=== PATIENT | female | born 1990 | race Caucasian/White ===

== ENCOUNTER 2018-10-20 10:31 | Emergency (ER) | payer MEDICAID ==
[~2018-10-20] VITALS: Ht 165.1 cm; Wt 61.2 kg
[~2018-10-20 10:31] MED LIST: FLUO20CA25
--- OUTSIDE RECORDS SUMMARY | 2018-10-20 10:55 | XMS REPORT ---
Author Author LOU JC Organization [facility] Address [address] [place] [address] Phone Unavailable Care Team Providers Care Gasoline Catalyst Operator Name Role Phone LOU JC Unavailable Unavailable PROBLEMS Unknown Problems ALLERGIES No Known Allergies ENCOUNTERS Encounter Location Date Diagnosis [facility] [id number], [place] [address] Sep, [facility] [id number] [address] Aug, [facility] [address], [place] [address] Aug, [facility] [id number] [id number] Aug, Oral health maintenance status requiring routine preventive dental care K08.9 IMMUNIZATIONS No Known Immunizations SOCIAL HISTORY Never Assessed REASON FOR VISIT PLAN OF CARE Activity Details Follow Up PRN Reason:Patient will call for appt. VITAL SIGNS MEDICATIONS Unknown Medications RESULTS No Results PROCEDURES Procedure Date Ordered Result Body Site Full mouth debridement Aug 23, 2018 TOPICAL FLUORIDE VARNISH Aug 23, 2018 INSTRUCTIONS MEDICATIONS ADMINISTERED No Known Medications MEDICAL (GENERAL) HISTORY Type Description Date Medical History Undergoing treatment for addiction 09/04 Surgical History No know Surgical history
--- OUTSIDE RECORDS SUMMARY | 2018-10-20 10:55 | XMS REPORT | Continuity of Care Document ---
Author Author [facility] Organization [facility] Address [address] [place] [address] Care Team Providers Care Router Operator Radial Name Role Phone Eze Yang PCP Roderick Washburn Rndphys Allergies, Adverse Reactions, Alerts Allergen Type Severity Reaction Last Updated Verified Status benzonatate Allergy Severe Rash April 06, 2018 Y Active Medications Active Medications Medication Dose Units Route Sig Start Date Status Albuterol Sulfate [Proair Hfa] 2 PUFF INH Q4H PRN For Shortness Of Air/ Wheezing April 06, 2018 Active Cetirizine Hcl [Zyrtec] 10 MG PO Daily April 06, 2018 Active Divalproex Er [Depakote Er] 500 MG PO Daily April 06, 2018 Active Fluticasone Nasal Ogema [Flonase] 1 SPRAY EA NOSTRIL Daily April 06, 2018 Active Lamotrigine [Lamictal] 100 MG PO Daily April 06, 2018 Active Problem List Inactive/Resolved Problems Medical Problem Onset Date Status Suicidal ideation Inactive Procedures No known history of procedures. Relevant Diagnostic Tests and/or Laboratory Data Laboratory Results Test Date/Time Result Interp. Ref. Range Result Comment White Blood Count April 06, 2018 12:28pm 4.7 T/MM3 4.5-11.0 Red Blood Count April 06, 2018 12:28pm 4.22 M/MM3 4.00-5.20 Hemoglobin April 06, 2018 12:28pm 11.0 GM/DL Low 12-16 Hematocrit April 06, 2018 12:28pm 34.6 % Low 36-46 Mean Corpuscular Volume April 06, 2018 12:28pm 82.0 UM3 80-100 Mean Corpuscular Hemoglobin April 06, 2018 12:28pm 26.1 UUG 26-34 Mean Corpuscular Hemoglobin Concent April 06, 2018 12:28pm 31.8 GM/DL 31- 37 RDW Standard Deviation April 06, 2018 12:28pm 47.4 FL 36.9-50.2 Platelet Count April 06, 2018 12:28pm 277 T/MM3 130-400 Mean Platelet Volume April 06, 2018 12:28pm 10.7 UM3 9.4-12.4 Neutrophils (%) (Auto) April 06, 2018 12:28pm 52.5 % 33-66 Lymphocytes (%) (Auto) April 06, 2018 12:28pm 38.5 % 23-45 Monocytes (%) (Auto) April 06, 2018 12:28pm 5.8 % 0-9.0 Eosinophils (%) (Auto) April 06, 2018 12:28pm 3.0 % 0-4 Basophils (%) (Auto) April 06, 2018 12:28pm 0.2 % 0-2 Immature Granulocyte % (Auto) April 06, 2018 12:28pm 0.0 % 0.0-0.5 Neutrophils # (Auto) April 06, 2018 12:28pm 2.4 T/MM3 1.8-7.7 Lymphocytes # (Auto) April 06, 2018 12:28pm 1.8 T/MM3 1-4.8 Monocytes # (Auto) April 06, 2018 12:28pm 0.3 T/MM3 0-0.8 Eosinophils # (Auto) April 06, 2018 12:28pm 0.1 T/MM3 0-0.5 Basophils # (Auto) April 06, 2018 12:28pm 0.0 T/MM3 0-0.2 Absolute Immature Granulocyte (auto April 06, 2018 12:28pm 0.00 T/MM3 0.00 -0.03 Urine Collection Type April 06, 2018 12:00pm Urine, void-cc/notcc Urine Color April 06, 2018 12:00pm Yellow Urine Clarity April 06, 2018 12:00pm Clear Urine Specific [place] April 06, 2018 12:00pm <=1.005 Low Urine pH April 06, 2018 12:00pm 6.0 Urine Leukocyte Esterase April 06, 2018 12:00pm Negative Urine Nitrate April 06, 2018 12:00pm Negative Urine Protein April 06, 2018 12:00pm Negative Urine Glucose (UA) April 06, 2018 12:00pm Negative Urine Ketones April 06, 2018 12:00pm Negative Urine Urobilinogen April 06, 2018 12:00pm 0.2 EU/DL Urine Bilirubin April 06, 2018 12:00pm Negative Urine Occult Blood April 06, 2018 12:00pm Negative Urinalysis Comment April 06, 2018 12:00pm Microscopic not ind. Icterus Index April 06, 2018 12:28pm < 2 0-7 Chemistry Specimen Hemolysis April 06, 2018 12:28pm < 15 0-25 0-25: Specimen Exhibited No Hemolysis. Turbidity April 06, 2018 12:28pm < 20 0-20 Sodium Level April 06, 2018 12:28pm 147 MEQ/L High 136-146 Potassium Level April 06, 2018 12:28pm 4.0 MEQ/L 3.6-5 Chloride Level April 06, 2018 12:28pm 108 MEQ/L High 98-107 Carbon Dioxide Level April 06, 2018 12:28pm 24 MEQ/L 22-30 Anion Gap April 06, 2018 12:28pm 15 meq/L 5-15 Blood Urea Nitrogen April 06, 2018 12:28pm 7.0 MG/DL 7-17 Creatinine April 06, 2018 12:28pm 0.7 mg/dL 0.7-1.2 Glomerular Filtration Rate Calc April 06, 2018 12:28pm 100 BUN/Creatinine Ratio April 06, 2018 12:28pm 10 RATIO 6-26 Glucose Level April 06, 2018 12:28pm 95 MG/DL 65-110 Calculated Osmolality April 06, 2018 12:28pm 280 MOSM/KG 261-280 Calcium Level April 06, 2018 12:28pm 9.2 MG/DL 8.4-10.2 Total Bilirubin April 06, 2018 12:28pm 0.30 MG/DL 0.20-1.30 Alkaline Phosphatase April 06, 2018 12:28pm 86 U/L 38-126 Aspartate Amino Transf (AST/SGOT) April 06, 2018 12:28pm 18 U/L 14-36 Alanine Aminotransferase (ALT/SGPT) April 06, 2018 12:28pm 13 U/L 1-35 Effective 11/29/2017 ALT results are lower due to methodology change. Total Protein April 06, 2018 12:28pm 7.2 g/dL 6.3-8.2 Albumin April 06, 2018 12:28pm 4.7 g/dL 3.5-5.0 Globulin April 06, 2018 12:28pm 2.5 G/DL 2.4-3.6 Albumin/Globulin Ratio April 06, 2018 12:28pm 1.9 RATIO 1.1-2.2 Thyroid Stimulating Hormone (TSH) April 06, 2018 12:28pm 0.39 mIU/L Low 0.47 -4.68 This result could be falsely decreased if the patient is consuming greater than 300 mcg of Biotin per day. Acetaminophen Level April 06, 2018 12:28pm < 10 ug/mL Low 10-30 TOXIC <4 HR POST INGESTION: >150 MG/L; TOXIC <12 HR POST INGESTION: >50 MG/L Salicylates Level April 06, 2018 12:28pm < 1.0 MG/DL Low 2-20 Alcohol, Quantitative April 06, 2018 12:28pm <10 mg/dL Urine Amphetamines Screen April 06, 2018 12:37pm Positive ng/mL Urine Barbiturates Screen April 06, 2018 12:37pm Negative ng/mL Urine Benzodiazepines Screen April 06, 2018 12:37pm Negative ng/mL Urine Cocaine Screen April 06, 2018 12:37pm Negative ng/mL Urine Opiates Screen April 06, 2018 12:37pm Negative ng/mL Urine Phencyclidine Screen April 06, 2018 12:37pm Negative ng/mL Urine Cannabinoids Screen April 06, 2018 12:37pm Negative ng/mL Urine Tricyclic Antidepressants April 06, 2018 12:37pm Negative ng/mL Urine Oxycodone Screen April 06, 2018 12:37pm Negative ng/mL Urine Propoxyphene Screen April 06, 2018 12:37pm Negative ng/mL [employer] Drugs of Abuse Screen provides preliminary results only. The results are unconfirmed and are for medical treatment only. A more specific test (GC/MS ) must be used to confirm positive analytical test results. Results may not be used for any employment or legal purposes. Chief Complaint and Reason for Visit Encounter Admit Date Chief Complaint Reason for Visit Departed Emergency April 06, 2018 11:58am [facility] Discharge Instructions No known hospital discharge instructions. Hospital Discharge Medications Medication Dose Units Route Sig Qty Days Order Date Status Instructions Albuterol Sulfate 2 PUFF INH Q4H PRN For Shortness Of Air/Wheezing April 06, 2018 Active Cetirizine Hcl 10 MG PO Daily April 06, 2018 Active Divalproex Er 500 MG PO Daily April 06, 2018 Active Fluticasone Nasal [place] 1 SPRAY EA NOSTRIL Daily April 06, 2018 Active Lamotrigine 100 MG PO Daily April 06, 2018 Active Encounters Encounter Facility Location Admit/Visit Date Discharge/Departure Date Attending Provider Departed Emergency [facility] Emergency Department April 06, 2018 11:58am April 06, 2018 4:50pm Functional Status Query Response Date Recorded Comment Level of Consciousness Awake Alert Appropriate Follows Commands April 06, 2018 4:50pm Immunizations No known immunizations. Payers Payer Name Policy Type Covered Alliance Party Covered Alliance Party Id Relationship Subscriber Subscriber Id REG [facility] Plan Medicaid December Francis [id number] Self/Same As Patient Chula Francis [id number] Self Pay Personal Payment ([place] - No Insurance) Plan of Care No Known Plan of Care Information Social History Query Response Date Recorded Comment substance use type former substance user marijuana methamphetamine April 06, 2018 6:36pm Query Response Start Date Stop Date Smoking Status Current every day smoker Vital Signs Vital Reading Result Reference Range Collection Date/Time Height 5 ft 5 in April 06, 2018 12:10pm Weight 54 kg April 06, 2018 12:10pm Temperature 98.6 F 96.8 F-100.4 F April 06, 2018 4:50pm Pulse 81 BPM 60-100 April 06, 2018 4:50pm Respiration 18 RPM 10-24 April 06, 2018 4:50pm Pulse Oximetry 99 % 90-100 April 06, 2018 4:50pm Blood Pressure Systolic 128 -139 April 06, 2018 4:50pm Blood Pressure Diastolic 63 -89 April 06, 2018 4:50pm Body Mass Index n/a
--- OUTSIDE RECORDS SUMMARY | 2018-10-20 10:55 | XMS REPORT ---
Author Author FLYNN MARINO Organization [facility] Address [address] [place] [address] Care Team Providers Care Credit Products Officer Name Role Phone MARINO, FLYNN Unavailable PROBLEMS Type Condition ICD9-CM Code SNI60-KH Code Onset Dates Condition Status SNOMED Code Problem PTSD (post-traumatic stress disorder) F43.10 Active 80102061 Problem Bipolar 1 disorder F31.9 Active 370996248 Problem Cannabis abuse F12.10 Active 98768465 Problem Amphetamine abuse F15.10 Active 51615013 ALLERGIES No Information ENCOUNTERS Encounter Location Date Diagnosis [facility] [id number] [place] [address] Sep, [facility] [id number] [place] [address] Sep, [facility] [id number] [place] [address] Aug, [facility] [id number] [place] [phone] Aug, Bipolar 1 disorder F31.9 ; Amphetamine abuse F15.10 ; Cannabis abuse F12.10 and PTSD (post-traumatic stress disorder) F43.10 [facility] [id number] [place] [phone] Aug, Oral health maintenance status requiring routine preventive dental care K08.9 IMMUNIZATIONS No Known Immunizations SOCIAL HISTORY Never Assessed REASON FOR VISIT Intake PLAN OF CARE Activity Details Follow Up 3 Weeks Reason: VITAL SIGNS MEDICATIONS Medication Instructions Dosage Frequency Start Date End Date Duration Status Depakote 500 MG as directed Active RESULTS No Results PROCEDURES Procedure Date Ordered Result Body Site Psych diagnostic evaluation, established patient Sep 03, 2018 INSTRUCTIONS MEDICATIONS ADMINISTERED No Known Medications MEDICAL (GENERAL) HISTORY Type Description Date Medical History Undergoing treatment for addiction 09/04 Surgical History No Surgical history information
--- OUTSIDE RECORDS SUMMARY | 2018-10-20 10:55 | XMS REPORT | Summary of Care ---
Author Author Kenn Camarillo M.D. Organization Unknown Address [address], [place] [id number] Phone Unavailable Care Team Providers Care Export Sales Manager Name Role Phone Josefina Bradley Unavailable Unavailable Kenn Camarillo M.D. Unavailable Unavailable Eze Yang Unavailable Unavailable Unavailable Unavailable Functional Status Name Dates Details Functional status health issues are not documented Status: Name Dates Details Cognitive status health issues are not documented Status: Problems Name Dates Details Abscess of back (682.2, L02.212) Status: Active Medications Name Dates Details Sulfamethoxazole-Trimethoprim 800-160 MG Oral Tablet 1 PO BID for 7 days Quantity: 14 Josefina Bradley * Start : 27-Apr-2017 Active Mupirocin 2 % External Ointment APPLY A SMALL AMOUNT 2 TIMES DAILY DIRECTED. * Quantity: 1 Refills: 0 Josefina Bradley * Start : 27-Apr-2017 Active 22 GM Tube Acetaminophen-Codeine #3 300-30 MG Oral Tablet TAKE 1/2-1 TABLET EVERY 6 HOURS NEEDED FOR PAIN. * Quantity: 1 Refills: 0 Josefina Bradley * Start : 27-Apr-2017 Active 30 Tablet Bottle Allergies and Adverse Reactions Name Dates Details No Known Allergies (Allergy) Status: Active Procedures Procedure Dates Details Procedures not documented Immunization Name Dates Details Immunizations not documented Social History Name Dates Details - Status: Name Dates Details Current every day smoker Vital Signs Date Test Result Details [id number] BP Systolic 100 mm[Hg] Status: Comments: Location: [facility]; Position: Sitting BP Diastolic 60 mm[Hg] Status: Comments: Location: [facility]; Position: Sitting Weight 107 lb Status: Temperature 98.6 f Status: Comments: Method: Tympanic Heart Rate 104 /min Status: O2 SAT 99 % Status: Comments: Source: RA Results Date Description Value Details Results not documented Plan of Care Name Dates Details Planned Observations Planned Goals not documented Instructions Name Dates Details Instructions not documented Encounters Appointment; Kenn Camarillo M.D. Encounter Diagnosis: Problem not documented On: 27-Apr-2017 15:00
--- OUTSIDE RECORDS SUMMARY | 2018-10-20 10:55 | XMS REPORT | Continuity Of Care Document ---
Author Author [facility] Organization [facility] Address [address] [place] [address] Phone Care Team Providers Care Data Migration Consultant Name Role Phone NAIN HARRINGTON MD Unavailable ESHA HULL, JILLIAN Schultz AT Results Results No results recorded. Allergies and Adverse Reactions Allergies and Adverse Reactions Patient Unit Number: [id number] Agent Type Reaction Severity Status NO KNOWN ALLERGIES Drug Allergy Unknown Unknown Active Problem List Problem List No problem list recorded. Plan of Care Plan Of Care Visit/Account #[id number] (April 29, 2017 2:55am - April 29, 2017 3:32am) Patient Instructions Apply warm compresses to area for 20 minutes at a time at least twice a day. Take the antibiotics as previously prescribed. Take tylenol 1000 mg and ibuprofen 400 mg four times a day as needed for pain for no more than 3 days. Return if symptoms worsen, if new symptoms develop, or for any other concerns. Vital Signs Vital Signs Visit/Account #[id number] (April 29, 2017 2:55am - April 29, 2017 3:32am) Sign First Result Last Result Code(s) Temperature in Fahrenheit Temperature (Fahrenheit): 98.1 [degF] On April 29, 2017 2:56am Temperature (Fahrenheit): 98.0 [degF] On April 29, 2017 3:32am 8310-5 Body Temperature Functional Status Functional and Cognitive Status No Functional Status Data Medications Inpatient/Ordered Medications - Medications administered during hospital visit Visit/Account #[id number] (April 29, 2017 2:55am - April 29, 2017 3:32am) Medication Route Sig/Schedule Precondition/Indication Comments/Instructions Codes NORCO 5-325(HYDROcodone BIT/ACETAMINOPHEN) 1 TAB TAB Dose: 2 TAB ORAL NOW Label Comments: <<may be substituted for 5/500>> REC MAX DAILY DOSE ACETAMINOPHEN: 4000 MG/24 HR MAY INCREASE FALL RISK Acetaminophen 325 MG / Hydrocodone Bitartrate 5 MG Oral Tablet (RxNorm): 601595 NORCO 5-325 (HYDROcodone BIT/ACETAMINOPHEN) [facility]: [id number] History Of Encounters Encounters Visit/Account #[id number] (April 29, 2017 2:55am - April 29, 2017 3:32am) Account Status Physican Of Record Reason For Visit Visit Diagnosis Start Date/Time Stop Date/Time ER JILLIAN BALBUENA MD BUMP ON BACK Not Available Apr 29, 2017 2:55am Apr 29, 2017 3:32am History of Procedures Procedure List No procedures recorded. Discharge Instructions Discharge Instructions Visit/Account #[id number] (April 29, 2017 2:55am - April 29, 2017 3:32am) DISCHARGE INSTRUCTIONS Physician Documentation Social History Social History No Social History Data. Immunizations Immunizations Patient Unit Number: [id number] Immunizations No immunizations recorded.
--- OUTSIDE RECORDS SUMMARY | 2018-10-20 10:55 | XMS REPORT | Summary of Care ---
Author Author Josefina Bradley Organization Unknown Address [address] [place] [phone] Phone Unavailable Care Team Providers Care Digital Communications Manager Name Role Phone Josefina Bradley Unavailable Unavailable Eze Yang Unavailable Unavailable Unavailable [...] smoker Vital Signs Date Test Result Details 04-Hac-353036:56 BP Systolic 100 mm[Hg] Status: Comments: Location: E; Position: Sitting BP Diastolic 60 mm[Hg] Status: Comments: Location: [facility]; Position: Sitting Weight 107 lb Status: Temperature 98.6 f Status: Comments: Method: Tympanic Heart Rate 104 /min Status: O2 SAT 99 % Status: Comments: Source: RA Results Date Description Value Details Results not documented Plan of Care Name Dates Details Planned Observations Planned Goals not documented Interventions Provided Medication Changes* Acetaminophen-Codeine #3 300-30 MG Oral Tablet - Start * Mupirocin 2 % External Ointment - Start * Sulfamethoxazole-Trimethoprim 800-160 MG Oral Tablet - Start Instructions Name Dates Details Instructions not documented Encounters Appointment; Josefina Bradley Encounter Diagnosis: Problem not documented On: 27-Apr-2017 15:15
--- OUTSIDE RECORDS SUMMARY | 2018-10-20 10:56 | XMS REPORT | Continuity Of Care Document ---
Author Author [facility] Organization [facility] Address [address] [place] [address] Phone Care Team Providers Care Iuss Analyst Name Role Phone NAIN HARRINGTON MD PP Unavailable Unavailable TRACIE ESTES MD AT Results Lab Results Visit/Account #[id number] (May 13, 2017 7:33am - May 13, 2017 11:33am) Test Result Date/Time CBC WITH REFLEXED MANUAL DIFF WHITE BLOOD COUNT(4.0-11.0 10E3/UL) 5.8 10E3/UL May 13, 2017 7:50am RED BLOOD COUNT(4.00-5.20 10E6/UL) 4.46 10E6/UL May 13, 2017 7:50am HEMOGLOBIN(12.0-16.0 G/DL) 13.0 G/DL May 13, 2017 7:50am HEMATOCRIT(36.0-46.0 %) 38.6 % May 13, 2017 7:50am MEAN CORPUSCULAR VOLUME(82.0-100.0 FL) 86.5 FL May 13, 2017 7:50am MEAN CORPUSCULAR HEMOGLOBIN(26.0-34.0 PG) 29.1 PG May 13, 2017 7:50am MEAN CORPUSCULAR HGB CONC(31.5-36.5 G/DL) 33.7 G/DL May 13, 2017 7:50am RED CELL DISTRIBUTION WIDTH(11.5-14.5 %) 13.6 % May 13, 2017 7:50am 777-3: PLATELET COUNT(150-450 10E3/UL) 287 10E3/UL May 13, 2017 7:50am MEAN PLATELET VOLUME(8.2-12.4 FL) 10.0 FL May 13, 2017 7:50am DIFF TYPE MANUAL May 13, 2017 7:50am NEUTROPHIL % (MANUAL)(40-70 %) 55 % May 13, 2017 7:50am LYMPHOCYTES % (MANUAL)(15-45 %) 40 % May 13, 2017 7:50am MONOCYTES % (MANUAL)(2-10 %) 3 % May 13, 2017 7:50am EOSINOPHILS % (MANUAL)(0-6 %) 2 % May 13, 2017 7:50am BASOPHILS % (MANUAL)(0-1 %) 0 % May 13, 2017 7:50am NUCLEATED RBCS (MANUAL)(0-0 %) 0 % May 13, 2017 7:50am NEUTROPHILS # (MANUAL)(2.5-7.5 10E3/UL) 3.2 10E3/UL May 13, 2017 7:50am LYMPHOCYTES # (MANUAL)(1.0-4.0 10E3/UL) 2.3 10E3/UL May 13, 2017 7:50am MONOCYTES # (MANUAL)(0.2-0.8 10E3/UL) 0.2 10E3/UL May 13, 2017 7:50am EOSINOPHILS # (MANUAL)(0.0-0.4 10E3/UL) 0.1 10E3/UL May 13, 2017 7:50am BASOPHILS # (MANUAL)(0.0-0.2 10E3/UL) 0.0 10E3/UL May 13, 2017 7:50am PLATELET ESTIMATE ADEQUATE May 13, 2017 7:50am WBC MORPHOLOGY COMMENT 1+ ATYPICAL LYMPHS May 13, 2017 7:50am RBC MORPHOLOGY COMMENT NORMAL May 13, 2017 7:50am PLATELET MORPHOLOGY COMMENT NORMAL May 13, 2017 7:50am UA WITH SCREEN FOR CULTURE COLOR,URINE YELLOW May 13, 2017 10:05am CLARITY,URINE SLIGHTLY CLOUDY May 13, 2017 10:05am GLUCOSE, URINE(NEGATIVE MG/DL) NEGATIVE MG/DL May 13, 2017 10:05am URINE BILIRUBIN(NEGATIVE) SMALL May 13, 2017 10:05am KETONES,URINE(NEGATIVE MG/DL) 5 MG/DL May 13, 2017 10:05am URINE SPECIFIC GRAVITY(1.001-1.035) 1.040 May 13, 2017 10:05am URINE BLOOD(NEGATIVE) NEGATIVE May 13, 2017 10:05am URINE PH(5.0-9.0) 7.0 May 13, 2017 10:05am URINE PROTEIN(Less than 20 MG/DL) 30 MG/DL May 13, 2017 10:05am URINE UROBILINOGEN(0.2-1.0 MG/DL) 4.0 MG/DL May 13, 2017 10:05am URINE NITRITE(NEGATIVE) NEGATIVE May 13, 2017 10:05am LEUKOCYTE ESTERASE ,URINE(NEGATIVE) MODERATE May 13, 2017 10:05am URINE RBCS(0-3 /HPF) 0-3 /HPF May 13, 2017 10:05am URINE WBCS(0-3 /HPF) 21-50 /HPF May 13, 2017 10:05am URINE EPITHELIAL CELLS(0-3 /HPF) 4-7 /HPF May 13, 2017 10:05am URINE HYALINE CASTS(0-3 /LPF) 0-3 /LPF May 13, 2017 10:05am URINE BACTERIA(NEGATIVE /HPF) 1+ /HPF May 13, 2017 10:05am URINE CULTURE TO FOLLOW May 13, 2017 10:05am URINE MICROSCOPIC REQUIRED YES May 13, 2017 10:05am URINE CRYSTALS(NONE SEEN /HPF) 2+ AMORPHOUS /HPF May 13, 2017 10:05am URINE OTHER CASTS(NONE SEEN /LPF) NONE SEEN /LPF May 13, 2017 10:05am URINE COMMENTS 3+ MUCOUS May 13, 2017 10:05am COMPLETE METABOLIC PROFILE GLUCOSE(70-110 MG/DL) 90 MG/DL May 13, 2017 7:50am BLOOD UREA NITROGEN(6-20 MG/DL) 17 MG/DL May 13, 2017 7:50am CREATININE(0.50-1.20 MG/DL) 0.77 MG/DL May 13, 2017 7:50am EST GLOMERULAR FILTRATION RATE(Greater than or equal to 60) Greater than or equal to 60 Result Comments: If the patient is of -[place] descent/extraction multiply the eGFR value by 1.212 to obtain the actual eGFR. >=60 mg/dL Normal 30-59 mg/dL Moderate Kidney Disease 15-29 mg/dL Severe Kidney Disease <15 mg/dL Kidney Failure May 13, 2017 7:50am BUN CREATININE RATIO(10.0-20.0 RATIO) 22.0 RATIO May 13, 2017 7:50am SODIUM(135-145 MMOL/L) 143 MMOL/L May 13, 2017 7:50am POTASSIUM(3.6-5.0 MMOL/L) 3.9 MMOL/L May 13, 2017 7:50am CHLORIDE(101-111 MMOL/L) 107 MMOL/L May 13, 2017 7:50am CO2(21-31 MMOL/L) 26 MMOL/L May 13, 2017 7:50am ANION GAP(8-18) 14 May 13, 2017 7:50am OSMO CALCULATED(270.0-290.0) 286.1 May 13, 2017 7:50am CALCIUM(8.5-10.5 MG/DL) 9.7 MG/DL May 13, 2017 7:50am BILIRUBIN,TOTAL(0.1-1.2 MG/DL) 0.6 MG/DL May 13, 2017 7:50am ALKALINE PHOSPHATASE(42-121 IU/L) 89 IU/L May 13, 2017 7:50am ASPARTATE AMINO TRANSFERASE(10-42 IU/L) 18 IU/L May 13, 2017 7:50am ALANINE AMINOTRANSFERASE(10-60 IU/L) 15 IU/L May 13, 2017 7:50am TOTAL PROTEIN(6.4-8.2 G/DL) 7.7 G/DL May 13, 2017 7:50am ALBUMIN(3.5-5.5 G/DL) 4.8 G/DL May 13, 2017 7:50am GLOBULIN(2.4-3.6) 2.9 May 13, 2017 7:50am ALBUMIN/GLOBULIN RATIO(0.9-1.8 RATIO) 1.7 RATIO May 13, 2017 7:50am LIPASE LIPASE(22-51 U/L) 32 U/L May 13, 2017 7:50am SERUM HCG, QUALITATIVE SERUM HCG, QUALITATIVE(NEGATIVE) NEGATIVE May 13, 2017 7:50am Microbiology Results Visit/Account #[id number] (May 13, 2017 7:33am - May 13, 2017 11:33am) Procedure Result URINE CULTURE URINE CULTURE Result Instance On May 13, 2017 10:05am Source: URINE Organism: MIXED UROGENITAL ORGANISMS COLONY COUNT >100,000 Allergies and Adverse Reactions Allergies and Adverse Reactions Patient Unit Number: [id number] Agent Type Reaction Severity Status NO KNOWN ALLERGIES Drug Allergy Unknown Unknown Active Problem List Problem List Visit/Account #[id number] (May 13, 2017 7:33am - May 13, 2017 11:33am) Active Problems: Code/Condition Comments Documented Start Date Documented Resolved Date Code (s) N30.00 ACUTE CYSTITIS WITHOUT HEMATURIA May 13, 2017 Plan of Care Plan Of Care Visit/Account #[id number] (May 13, 2017 7:33am - May 13, 2017 11:33am) Patient Instructions Follow with a primary care Dr. in 3-5 days. Drink a lot of oral fluids. Take antibiotics as prescribed and take pain medications as needed. Return to the emergency room if symptoms worsens or has any concern. Vital Signs Vital Signs No Vital Signs Data. Functional Status Functional and Cognitive Status No Functional Status Data Medications Inpatient/Ordered Medications - Medications administered during hospital visit Visit/Account #[id number] (May 13, 2017 7:33am - May 13, 2017 11:33am) Medication Route Sig/Schedule Precondition/Indication Comments/Instructions Codes TORADOL INJ(KETOROLAC TROMETHAMINE) 60 MG/2 ML VIAL Dose: 0.5 ML INTRAVEN NOW TORADOL INJ (KETOROLAC TROMETHAMINE) NDC: 80768345156 ZOFRAN INJ(ONDANSETRON HCL) 4 MG/2 ML INJECTION Dose: 2 ML INTRAVEN NOW Label Comments: SLOW IV PUSH MAY INCREASE FALL RISK ZOFRAN INJ (ONDANSETRON HCL) NDC: 53030454478 KEFLEX(CEPHALEXIN) 500 MG CAP Dose: 500 MG ORAL NOW KEFLEX (CEPHALEXIN) NDC: 51487878860 Discharge Medications - Medications that patient should continue to take. Review with physician Visit/Account #[id number] (May 13, 2017 7:33am - May 13, 2017 11:33am) Medication Route Sig/Schedule Precondition/Indication Comments/Instructions Codes KEFLEX(CEPHALEXIN MONOHYDRATE) 500 MG CAPSULE Dose: 500 MG ORAL BID KEFLEX (CEPHALEXIN MONOHYDRATE) NDC: 53975926538 NORCO 5-325(HYDROcodone BIT/ACETAMINOPHEN) 1 EACH TABLET Dose: 1 TAB ORAL Q4H PAIN NORCO 5-325 (HYDROcodone BIT/ACETAMINOPHEN) NDC: 13478026699 History Of Encounters Encounters Visit/Account #[id number] (May 13, 2017 7:33am - May 13, 2017 11:33am) Account Status Physican Of Record Reason For Visit Visit Diagnosis Start Date/Time Stop Date/Time ER TRACIE ESTES MD ABD PAIN R10.30: LOWER ABDOMINAL PAIN, UNSPECIFIED ICD10 May 13, 2017 7:33am May 13, 2017 11:33am History of Procedures Procedure List No procedures recorded. Discharge Instructions Discharge Instructions Visit/Account #[id number] (May 13, 2017 7:33am - May 13, 2017 11:33am) DISCHARGE INSTRUCTIONS Physician Documentation Social History Social History No Social History Data. Immunizations Immunizations Patient Unit Number: [id number] Immunizations No immunizations recorded.
--- OUTSIDE RECORDS SUMMARY | 2018-10-20 10:56 | XMS REPORT | Continuity Of Care Document ---
Author Author [facility] Organization [facility] Address [address] [facility] [facility], [place] [address] Phone Care Team Providers Care Experimental Machinist Name Role Phone LEXI HULL, JESUS Marquez AT [phone] JUANY HULL, NAIN Squires PP Results Lab Results Visit/Account #[id number] (April 07, 2013 2:30pm - April 08, 2013 7:50pm) Test Result Reported Date/Time COMPLETE BLOOD COUNT WHITE BLOOD COUNT(4.0-11.0 10E3/UL) 10.2 10E3/UL April 07, 2013 3:26pm RED BLOOD COUNT(3.80-5.20 10E6/UL) 4.48 10E6/UL April 07, 2013 3:26pm HEMOGLOBIN(12.0-16.0 G/DL) 14.2 G/DL April 07, 2013 3:26pm HEMATOCRIT(36.0-48.0 %) 42.5 % April 07, 2013 3:26pm MEAN CORPUSCULAR VOLUME(80.0-100.0 FL) 94.9 FL April 07, 2013 3:26pm MEAN CORPUSCULAR HEMOGLOBIN(27.0-34.0 PG) 31.7 PG April 07, 2013 3:26pm MEAN CORPUSCULAR HGB CONC(33.0-37.0 G/DL) 33.4 G/DL April 07, 2013 3:26pm RED CELL DISTRIBUTION WIDTH(11.0-15.0 %) 13.1 % April 07, 2013 3:26pm 777-3: PLATELET COUNT(130-400 10E3/UL) 183 10E3/UL April 07, 2013 3:26pm MEAN PLATELET VOLUME(7.4-11.0 FL) 12.2 FL April 07, 2013 3:26pm NUCLEATED RBCS (AUTO)(0-0 %) 0 % April 07, 2013 3:26pm Microbiology Results Visit/Account #[id number] (April 07, 2013 2:30pm - April 08, 2013 7:50pm) Procedure Result Specimen #: [id number] MRSA SCREEN FOR INFEC CONTROL Result Instance On April 09, 2013 2:21pm Source: STEPHANIE Special Result Comments: NO MRSA ISOLATED Bloodbank Results Visit/Account #[id number] (April 07, 2013 2:30pm - April 08, 2013 7:50pm) Test Result ABO/RH BLOOD TYPE O NEGATIVE on April 07, 2013 3:54pm ANTIBODY SCREEN ANTIBODY SCREEN POSITIVE on April 07, 2013 4:06pm ANTIBODY IDENTIFICATION ANTIBODY IDENTIFICATION Antibody: Anti-D PATIENT RECEIVED RHIG ON JANUARY 21, 2013, PER OMAR DIEHL HEMOGLOBLIN BATTERY HEMOGLOBIN PATIENT RES. Negative on April 08, 2013 3:53am RHOPHYLAC INDICATION RHOPHYLAC INDICATION INDICATED on April 08, 2013 1:42am RHIG LOT NUMBER RHIG LOT NUMBER [id number] on April 08, 2013 3:57am RHIG EXPIRATION RHIG EXPIRATION 14 JUL 2015 on April 08, 2013 3:58am Issued Product(s): Rhophylac:U500.0811 (1 Total Units) 1 Unit(s) Of 641191 Rhophylac TRANSFUSED April 08, 2013 5:55am Result Procedures Visit/Account #[id number] (April 07, 2013 2:30pm - April 08, 2013 7:50pm) Department: MEDICAL RECORDS [ Report: OPERATIVE NOTE ] OPERATIVE NOTE Dictated By: JESUS ELLIOTT MD Signed By: JESUS ELLIOTT MD [address] [address] Patient: OLE OCONNOR Unit/MR#: [id number] : 1990 Age: 22 Sex: F Report#: [id number] Room#: 619-A Location: Dictator: JESUS ELLIOTT MD Attn Phys: JESUS ELLIOTT MD Adm Date: 04/07/13 Disch Date: 04/08/13 ~OPERATIVE NOTE~ Signed DATE OF OPERATION: 04/07/2013 SURGEON: JESUS ELLIOTT MD LABOR SUMMARY: The patient is a 22-year-old multiparous female, admitted to Labor and Delivery with spontaneous rupture of membranes. She is at 39 weeks. Pitocin augmentation was initiated and she progressed nicely in her first stage, had a short pushing stage, and then had a spontaneous vaginal delivery of a vigorous female with Apgars assigned by nursing over an intact perineum without extension. Placenta delivered shortly thereafter intact, 3 vessel. Estimated blood loss 350 mL. JEP:Nitish [id number] D. 04/07/2013 T. 04/07/2013 CC: JESUS ELLIOTT MD ~ Dictated By: JESUS ELLIOTT MD Signed By: JESUS ELLIOTT MD 04/15/13 180 JESUS ELLIOTT MD 04/15/13 180 Allergies and Adverse Reactions Allergies and Adverse Reactions Patient Unit Number: [id number] Agent Type Reaction Severity Status Date NO KNOWN ALLERGIES Drug Allergy Unknown Mild Active January 14, 2011 Problem List Problem List Visit/Account #[id number] (April 07, 2013 2:30pm - April 08, 2013 7:50pm) Active Problems: Code/Condition Comments Documented Start Date Documented Resolved Date 657.01 POLYHYDRAMNIOS,DEL W OR W/O MENTN ANTEPARTUM COND April 08, 2013 649.01 TOBACCO USE DISORDER COMP PREG/CHILDBIRTH/PUERPERIUM, DELIV April 08, 2013 V27.0 DELIVER-SINGLE LIVEBORN April 08, 2013 Vital Signs Vital Signs Visit/Account #[id number] (April 07, 2013 2:30pm - April 08, 2013 7:50pm) Label First Result Last Result 2710-2: O2% 98 % April 07, 2013 11:02pm 98 % April 07, 2013 11:02pm 8310-5: Celsius Body Temperature 36.22853 Lois April 07, 2013 11:02pm 36.88345 Lois April 07, 2013 11:02pm 8310-5: Fahrenheit Body Temperature 97.9 [degF] April 07, 2013 11:02pm 97.9 [degF] April 07, 2013 11:02pm Blood Pressure 112/54 mm[Hg] April 07, 2013 11:02pm 112/54 mm[Hg] April 07, 2013 11:02pm 8867-4: Heart Rate 67 /min April 07, 2013 11:02pm 67 /min April 07, 2013 11:02pm 9279-1: Respiratory Rate 18 /min April 07, 2013 11:02pm 18 /min April 07, 2013 11:02pm Home Medications Home Medications Visit/Account #[id number] (April 07, 2013 2:30pm - April 08, 2013 7:50pm) Discontinued Medications Medication Dose Route Sig/Schedule Precondition/Indication Comments/ Instructions NDC LORTAB 5-500(HYDROCODONE BIT/ACETAMINOPHEN) 1 TAB TABLET 1 - 2 TAB PO: ORAL Q4: EVERY 4 HOURS Status: Discontinued as of 04/07/2013 3:24pm Rx Instructions: 1-2 TABS LORTAB 5-500 (HYDROCODONE BIT/ACETAMINOPHEN): [id number] Ordered Medications Ordered Medications Visit/Account #[id number] (April 07, 2013 2:30pm - April 08, 2013 7:50pm) Medication Dose Route Sig/Schedule Precondition/Indication Comments/ Instructions NDC SUBLIMAZE INJ(FentaNYL CITRATE) 100 MCG/2 ML INJECTION 100 MCG IV: INTRAVEN Q1H PRN Reason: PRN Reason: PAIN Rx Order Comments: Order filed UNV: Dose Warnings differ from purchase order checker SUBLIMAZE INJ (FentaNYL CITRATE): [id number] IV Medication Carriers: OXYTOCIN/RINGERS LACTATE 30 UNIT/500 ML INJECTION 500 UNIT IV: INTRAVEN .Q0M (Rate: 0 MLS/HR Duration: 0 SEC) PRN Reason: PRN Reason: INDUCTION/AUGMENTATION LABOR Rx Order Comments: Order filed UNV: Dose Warnings differ from purchase order checker Label Comments: Conc: 60 milliunits/mL Initiate at 1 milliunits/minute and increase infusion by 2-4 milliunits/minute every 20-30 minutes to a max of 36 milliunits/minute until desired contraction pattern is established. Carriers: (OXYTOCIN/RINGERS LACTATE): [id number] IV Medication Carriers: LR(LACTATED RINGER'S) 1000 ML INJECTION 1000 ML IV: INTRAVEN .Q8H (Rate: 125 MLS/HR Duration: 8 HR) Carriers: LR (LACTATED RINGER'S): [id number] MOTRIN(IBUPROFEN) 800 MG TAB 800 MG PO: ORAL Q8S: EVERY 8 HOURS Label Comments: Patient may refuse, but encourage use. MOTRIN (IBUPROFEN): [id number] NORCO 5-325(HYDROCODONE BIT/ACETAMINOPHEN) 1 TAB TAB 0 TAB PO: ORAL Q4H PRN Reason: PRN Reason: MODERATE PAIN Label Comments: (pain level 3-6) Special Dose Instructions: 1-2 TABS NORCO 5-325 (HYDROCODONE BIT/ACETAMINOPHEN): [id number] ADACEL(DIPHTH/TETANUS/ACEL. PERTUSSIS) 0.5 ML INJECTION 0.5 ML IM: INTRAMUSC .CHET PRN Reason: VACCINATION STATUS Label Comments: offer prior to dismissal ADACEL (DIPHTH/TETANUS/ACEL. PERTUSSIS): [id number] History Of Encounters Encounters Visit/Account #[id number] (April 07, 2013 2:30pm - April 08, 2013 7:50pm) No reports exist, or have been identified for inclusion with this encounter. History of Procedures Procedure List Visit/Account #[id number] (April 07, 2013 2:30pm - April 08, 2013 7:50pm) Code/Procedure Date 73.59: MANUAL ASSIST KENN CARDONA April 07, 2013
--- OUTSIDE RECORDS SUMMARY | 2018-10-20 10:56 | XMS REPORT | Continuity of Care Document ---
Author Author [facility] Organization [facility] Address [address] [place] [address] Care Team Providers Care Pattern Wheel Maker Name Role Phone Eze Yang PCP Roderick [...] Daily April 06, 2018 Active Fluticasone Nasal [place] [Flonase] 1 SPRAY EA NOSTRIL Daily April 06, 2018 Active Lamotrigine [Lamictal] 100 MG PO Daily April 06, 2018 Active Problem List Active Problems Medical Problem Onset Date Status Suicidal behavior Active Procedures No known history of procedures. Relevant [...] April 06, 2018 12:00pm Clear Urine Specific [place] April 06, 2018 12:00pm <=1.005 Low Urine [...] April 06, 2018 12:37pm Negative ng/mL The [facility] of Abuse Screen provides preliminary results [...] Visit Departed Emergency April 06, 2018 11:58am [facility] Discharge Instructions No known hospital discharge instructions. Hospital Discharge Medications Medication Dose Units Route Sig Qty Days Order Date Status Instructions Albuterol Sulfate 2 PUFF INH Q4H PRN For Shortness Of Air/Wheezing April 06, 2018 Active Cetirizine Hcl 10 MG PO Daily April 06, 2018 Active Divalproex Er 500 MG PO Daily April 06, 2018 Active Fluticasone Nasal [place] 1 SPRAY EA NOSTRIL Daily April 06, 2018 Active Lamotrigine 100 MG PO Daily April 06, 2018 Active Encounters Encounter Facility Location Admit/Visit Date Discharge/Departure Date Attending Provider Departed Emergency [facility] Emergency Department April 06, 2018 11:58am April 06, 2018 4:50pm Functional Status Query Response Date Recorded Comment Level of Consciousness Awake Alert Appropriate Follows Commands April 06, 2018 4:50pm Immunizations No known immunizations. Payers Payer Name Policy Type Covered Libertarian Covered Libertarian Id Relationship Subscriber Subscriber Id REG [facility] Plan Medicaid December Francis [id number] Self/Same As Patient Chula Francis [id number] Self Pay Personal Payment ([place] - No Insurance) Plan of Care No Known Plan of Care Information Social History Query Response Date Recorded Comment substance use type former substance user marijuana methamphetamine April 06, 2018 2:33pm Query Response Start Date Stop Date Smoking [...]
--- OUTSIDE RECORDS SUMMARY | 2018-10-20 10:56 | XMS REPORT | Continuity Of Care Document ---
Author Author [facility] Organization [facility] Address [address] [address] Phone Care Team Providers Care Wax Ball Molder Name Role Phone CHRIS ESPINOZA MD PP Results Lab Results Visit/Account #[id number] (November 08, 2014 12:41am - November 09, 2014 6: 06pm) Test Result Date/Time 12687-6: HEMOGLOBIN AND HEMATOCRIT HEMOGLOBIN(12.0-16.0 G/DL) 11.6 G/DL November 09, 2014 7:30am HEMATOCRIT(36.0-46.0 %) 34.7 % November 09, 2014 7:30am 20885-3: COMPLETE BLOOD COUNT WHITE BLOOD COUNT(4.0-11.0 10E3/UL) 12.9 10E3/UL November 08, 2014 1:48am RED BLOOD COUNT(4.00-5.20 10E6/UL) 4.19 10E6/UL November 08, 2014 1:48am HEMOGLOBIN(12.0-16.0 G/DL) 13.3 G/DL November 08, 2014 1:48am HEMATOCRIT(36.0-46.0 %) 38.9 % November 08, 2014 1:48am 17825-8: MEAN CORPUSCULAR VOLUME(82.0-100.0 FL) 92.8 FL November 08, 2014 1:48am 26895-3: MEAN CORPUSCULAR HEMOGLOBIN(26.0-34.0 PG) 31.7 PG November 08, 2014 1:48am MEAN CORPUSCULAR HGB CONC(31.5-36.5 G/DL) 34.2 G/DL November 08, 2014 1:48am RED CELL DISTRIBUTION WIDTH(11.5-14.5 %) 13.3 % November 08, 2014 1:48am 777-3: PLATELET COUNT(150-450 10E3/UL) 210 10E3/UL November 08, 2014 1:48am MEAN PLATELET VOLUME(8.2-12.4 FL) 11.1 FL November 08, 2014 1:48am NUCLEATED RBCS (AUTO)(0-0 %) 0 % November 08, 2014 1:48am Microbiology Results Visit/Account #[id number] (November 08, 2014 12:41am - November 09, 2014 6: 06pm) Procedure Result 79596-1: MRSA SCREEN FOR INFEC CONTROL 77253-0: MRSA SCREEN FOR INFEC CONTROL Result Instance On November 09, 2014 2:08am Source: NARE Special Result Comments: No growth Bloodbank Results Visit/Account #[id number] (November 08, 2014 12:41am - November 09, 2014 6: 06pm) Test Result ABO/RH 63589-9: BLOOD TYPE O NEGATIVE on November 08, 2014 4:20am ANTIBODY SCREEN ANTIBODY SCREEN POSITIVE on November 08, 2014 4:21am 888-8: ANTIBODY IDENTIFICATION 888-8: ANTIBODY IDENTIFICATION Antibody: Anti-D HEMOGLOBLIN BATTERY HEMOGLOBIN PATIENT RES. Negative on November 08, 2014 10:29am RHOPHYLAC INDICATION RHOPHYLAC INDICATION INDICATED on November 08, 2014 9:25am RHIG LOT NUMBER RHIG LOT NUMBER [id number] on November 08, 2014 10:31am RHIG EXPIRATION RHIG EXPIRATION [id number] on November 08, 2014 10:31am Allergies and Adverse Reactions Allergies and Adverse Reactions Patient Unit Number: [id number] Agent Type Reaction Severity Status Date NO KNOWN ALLERGIES Drug Allergy Unknown Unknown Active Unknown Date Problem List Problem List Visit/Account #[id number] (November 08, 2014 12:41am - November 09, 2014 6: 06pm) Acute Problems: Code/Condition Comments Documented Start Date Documented Resolved Date Code (s) delivery delivered ICD10: O82 delivery delivered ICD9: 669.71 delivery delivered SNOMED: 724824758 delivery delivered Anemia due to acute blood loss ICD10: D62 Acute posthemorrhagic anemia ICD9: 285.1 Acute posthemorrhagic anemia SNOMED: 999419873 Acute posthemorrhagic anemia Plan of Care Plan Of Care Visit/Account #[id number] (November 08, 2014 12:41am - November 09, 2014 6: 06pm) Instructions/Comments: DI for Vital Signs Vital Signs No Vital Signs Functional Status Functional Status No Functional Status Data Medications Home Medications Visit/Account #[id number] (November 08, 2014 12:41am - November 09, 2014 6: 06pm) Medication Route Sig/Schedule Precondition/Indication Comments/Instructions Codes Formula( VITS W-CA,FE,FA(<1MG)) 1 EACH TABLET ORAL DAILY: DAILY Formula ( VITS W-CA,FE,FA(<1MG)) ND: 33415023432 Inpatient/Ordered Medications Visit/Account #[id number] (November 08, 2014 12:41am - November 09, 2014 6: 06pm) Medication Route Sig/Schedule Precondition/Indication Comments/Instructions Codes IV Medication Carriers: OXYTOCIN/RINGERS LACTATE 30 UNIT/500 ML INJECTION Total Dose: 500 ML INTRAVEN .Q0M (Rate: 0 MLS/HR Duration: 0 SEC) PRN Reason: PRN Reason: INDUCTION/AUGMENTATION LABOR Label Comments: Conc: 60 milliunits/mL Initiate at 2 miliunits, increase by 2 miliunits every 15 minutes, max 36 Carriers: (OXYTOCIN/RINGERS LACTATE) RxNorm: C436073 (OXYTOCIN/RINGERS LACTATE) NDC: 92320359061 IV Medication Carriers: ANCEF 2 GM/50 ML(CEFAZOLIN SODIUM/NORMAL SALINE) 2 GM/50 ML INJECTION Total Dose: 50 ML INTRAVEN .CHET (Rate: 100 MLS/HR Duration: 30 MIN) Clinical Indication: Clinical Indication: ABX Preop Prophylaxis Label Comments: home connect lpn for possible IV Medication Carriers: LR(LACTATED RINGER'S) 1000 ML INJECTION Total Dose: 1000 ML INTRAVEN .Q8H (Rate: 125 MLS/HR Duration: 8 HR) Carriers: LR (LACTATED RINGER'S) RxNorm: G907313 LR (LACTATED RINGER'S) NDC: 22872595462 IV Medication Carriers: LR(LACTATED RINGER'S) 1000 ML INJECTION Total Dose: 1000 ML INTRAVEN .Q1H (Rate: 1000 MLS/HR Duration: 1 HR) Label Comments: Give bolus before epidural initiation. If patient has hypertension, notify anesthesiologist before initiation. Carriers: LR (LACTATED RINGER'S) RxNorm: C794857 LR (LACTATED RINGER'S) NDC: 28988024138 IV Medication Carriers: LR(LACTATED RINGER'S) 1000 ML INJECTION Total Dose: 1000 ML INTRAVEN .Q8H (Rate: 125 MLS/HR Duration: 8 HR) Label Comments: until discharged from labor and delivery suite. Carriers: LR (LACTATED RINGER'S) RxNorm: I884589 LR (LACTATED RINGER'S) NDC: 90874565866 KEISHA-SELTZER GOLD 2 TAB/1 PKT TAB Total Dose: 2 TAB ORAL NOW: NOW Label Comments: Dissolve on 30 mL of water and give immediately before transport to O.R. (KEISHA-SELTZER GOLD) NDC: 73054398530 REGLAN INJ(METOCLOPRAMIDE HCL) 5 MG/ML INJECTION Total Dose: 10 MG INTRAVEN NOW: NOW Label Comments: Give immediately before transport to O.R. REGLAN INJ (METOCLOPRAMIDE HCL) RxNorm: Z908838 REGLAN INJ (METOCLOPRAMIDE HCL) NDC: 68489502780 TORADOL INJ(KETOROLAC TROMETHAMINE) 30 MG/ML INJECTION Total Dose: 30 MG INTRAVEN .LDR.recovery.CHET PRN Reason: PRN Reason: MODERATE PAIN Rx Order Comments: Rule Override: POM.KETPRN - Length of Stay will be less than 5 days - By User: AGAPITO Label Comments: in recovery ONLY TORADOL INJ (KETOROLAC TROMETHAMINE) RxNorm: L973011 TORADOL INJ (KETOROLAC TROMETHAMINE) NDC: 60599761864 MORPHINE SULFATE 10 MG/ML INJECTION Total Dose: 10 MG INTRAMUSC Q3H PRN Reason: PRN Reason: PAIN Rx Order Comments: Order filed UNV: Allergies/Duplicates/Interactions differ from order detailer Label Comments: if unable to tolerate po pain meds or if pain is not relieved by po pain medications. Give with Diphenhydramine. (MORPHINE SULFATE) RxNorm: Z803783 (MORPHINE SULFATE) RxNorm: C871853 (MORPHINE SULFATE) NDC: 68178381147 PERCOCET 5/325(OxyCODONE/ACETAMINOPHEN) 1 TAB TAB Total Dose: 0 TAB ORAL Q4H PRN Reason: PRN Reason: MODERATE TO SEVERE PAIN Label Comments: (pain level 4-10). Use if hydrocodone/acetaminophen is ineffective or patient intolerant . Do not exceed 4000 mg of total acetaminophen per 24 hours Special Dose Instructions: 1-2 TABS PERCOCET 5/325 (OxyCODONE/ACETAMINOPHEN) RxNorm: E1327071 PERCOCET 5/325 (OxyCODONE/ACETAMINOPHEN) RxNorm: M1675939 PERCOCET 5/325 (OxyCODONE/ACETAMINOPHEN) NDC: 58007931759 COLACE(DOCUSATE SODIUM) 100 MG CAP Total Dose: 100 MG ORAL BID: TWICE A DAY COLACE (DOCUSATE SODIUM) RxNorm: A8553910 COLACE (DOCUSATE SODIUM) NDC: 96498790003 MOTRIN(IBUPROFEN) 800 MG TAB Total Dose: 800 MG ORAL Q8S: EVERY 8 HOURS Label Comments: Discontinue use if ketorolac is started. Patient may refuse, but encourage use. MOTRIN (IBUPROFEN) RxNorm: M815819 MOTRIN (IBUPROFEN) NDC: 33204153983 NICODERM 7 MG PATCH(NICOTINE) 1 PATCH PATCH Total Dose: 1 PATCH TOPICALLY DAILY: DAILY Label Comments: WEAR GLOVES FOR HANDLING OR WASH HANDS AFTER HANDLING. NICODERM 7 MG PATCH (NICOTINE) RxNorm: F467058 NICODERM 7 MG PATCH (NICOTINE) NDC: 90475662860 Discharge Medications Visit/Account #[id number] (November 08, 2014 12:41am - November 09, 2014 6: 06pm) Medication Route Sig/Schedule Precondition/Indication Comments/Instructions Codes Formula( VITS W-CA,FE,FA(<1MG)) 1 EACH TABLET ORAL DAILY: DAILY Formula ( VITS W-CA,FE,FA(<1MG)) NDC: 03494733523 Motrin(IBUPROFEN) 800 MG TAB ORAL Q8S: EVERY 8 HOURS Motrin (IBUPROFEN) RxNorm: A872407 Motrin (IBUPROFEN) NDC: 13393504492 PERCOCET 5-325 MG TABLET(OxyCODONE/ACETAMINOPHEN) 1 TAB TAB ORAL Q4H PERCOCET 5-325 MG TABLET (OxyCODONE/ACETAMINOPHEN) RxNorm: A1981960 PERCOCET 5-325 MG TABLET (OxyCODONE/ACETAMINOPHEN) RxNorm: C9057664 PERCOCET 5-325 MG TABLET (OxyCODONE/ACETAMINOPHEN) NDC: 07466658151 History Of Encounters Encounters Visit/Account #[id number] (November 08, 2014 12:41am - November 09, 2014 6: 06pm) Account Status Physican Of Record Reason For Visit Visit Diagnosis Start Date/Time Stop Date/Time CLI CHRIS ESPINOZA MD 659.73: ABN FET HT RT/RHYTHM,ANTEPARTUM COND OR COMPL ICD9 Nov 08, 2014 12:41am Nov 08, 2014 12:41am IN CHRIS ESPINOZA MD 659.73: ABN FET HT RT/RHYTHM,ANTEPARTUM COND OR COMPL ICD9 Nov 08, 2014 12:53am Nov 09, 2014 6:06pm History of Procedures Procedure List Visit/Account #[id number] (November 08, 2014 12:41am - November 09, 2014 6: 06pm) Code/Procedure Date 74.1: LOW CERVICAL November 08, 2014 Discharge Instructions Discharge Instructions Visit/Account #[id number] (November 08, 2014 12:41am - November 09, 2014 6: 06pm) No Discharge Instructions Reports. Social History Social History No Social History Data Immunizations Immunizations Visit/Account #[id number] (November 08, 2014 12:41am - November 09, 2014 6: 06pm) Immunization Date Comments/Instructions Codes ADACEL(DIPHTH/TETANUS/ACEL. PERTUSSIS) 0.5 ML INJECTION November 08, 2014 8:30am Label Comments: offer to patient prior to dismissal ADACEL (DIPHTH/TETANUS/ACEL. PERTUSSIS) CVX: 115 ADACEL (DIPHTH/TETANUS/ACEL. PERTUSSIS) RxNorm: K7368970 ADACEL (DIPHTH/TETANUS/ACEL. PERTUSSIS) RxNorm: H7855601 ADACEL (DIPHTH/TETANUS/ACEL. PERTUSSIS) ND: 68480610846
--- OUTSIDE RECORDS SUMMARY | 2018-10-20 10:56 | XMS REPORT | Continuity Of Care Document ---
Author Author [facility] Organization [facility] Address [address] [place] [address] Phone Care Team Providers Care Survey Project Manager Name Role Phone ERIC SHORT DO CP [phone] CAROLINA HULL, LOU[place] AD JUANY HULL, NAIN Squires PP MADDY HULL, BALDO AT Results Lab Results Visit/Account #[id number] (April 06, 2018 6:17pm - April 08, 2018 3:40pm) Test Result Date/Time COMPLETE BLOOD COUNT WITH DIFF WHITE BLOOD COUNT(4.0-11.0 10E3/UL) 5.7 10E3/UL April 07, 2018 5:46pm RED BLOOD COUNT(4.00-5.20 10E6/UL) 4.37 10E6/UL April 07, 2018 5:46pm HEMOGLOBIN(12.0-16.0 G/DL) 11.4 G/DL April 07, 2018 5:46pm HEMATOCRIT(36.0-46.0 %) 35.4 % April 07, 2018 5:46pm MEAN CORPUSCULAR VOLUME(82.0-100.0 FL) 81.0 FL April 07, 2018 5:46pm MEAN CORPUSCULAR HEMOGLOBIN(26.0-34.0 PG) 26.1 PG April 07, 2018 5:46pm MEAN CORPUSCULAR HGB CONC(31.5-36.5 G/DL) 32.2 G/DL April 07, 2018 5:46pm RED CELL DISTRIBUTION WIDTH(11.5-14.5 %) 15.8 % April 07, 2018 5:46pm 777-3: PLATELET COUNT(150-450 10E3/UL) 309 10E3/UL April 07, 2018 5:46pm MEAN PLATELET VOLUME(8.2-12.4 FL) 10.3 FL April 07, 2018 5:46pm NEUTROPHILS % (AUTO)(40-70 %) 54 % April 07, 2018 5:46pm LYMPHOCYTES % (AUTO)(15-45 %) 36 % April 07, 2018 5:46pm MONOCYTES % (AUTO)(2-10 %) 5 % April 07, 2018 5:46pm EOSINOPHILS % (AUTO)(0-6 %) 4 % April 07, 2018 5:46pm BASOPHILS % (AUTO)(0-1 %) 1 % April 07, 2018 5:46pm IMMATURE GRANS % (AUTO)(0-0 %) 0 % April 07, 2018 5:46pm NUCLEATED RBCS (AUTO)(0-0 %) 0 % April 07, 2018 5:46pm NEUTROPHILS # (AUTO)(2.5-7.5 10E3/UL) 3.1 10E3/UL April 07, 2018 5:46pm LYMPHOCYTES # (AUTO)(1.0-4.0 10E3/UL) 2.1 10E3/UL April 07, 2018 5:46pm MONOCYTES # (AUTO)(0.2-0.8 10E3/UL) 0.3 10E3/UL April 07, 2018 5:46pm EOSINOPHILS # (AUTO)(0.0-0.4 10E3/UL) 0.2 10E3/UL April 07, 2018 5:46pm BASOPHILS # (AUTO)(0.0-0.2 10E3/UL) 0.0 10E3/UL April 07, 2018 5:46pm IMMATURE GRANS # (AUTO)(0.0-0.0 10E3/UL) 0.0 10E3/UL April 07, 2018 5:46pm DIFF TYPE AUTOMATED April 07, 2018 5:46pm LIPID PROFILE TRIGLYCERIDES(35-160 MG/DL) 75 MG/DL April 07, 2018 7:38am CHOLESTEROL(0-200 MG/DL) 146 MG/DL April 07, 2018 7:38am LDL CHOLESTEROL,DIRECT(0-99 MG/DL) 94 MG/DL April 07, 2018 7:38am VLDL CHOLESTEROL(1-53 MG/DL) 15 MG/DL April 07, 2018 7:38am HDL CHOLESTEROL(35-85 MG/DL) 41 MG/DL April 07, 2018 7:38am CHOL/HDL RATIO(0.0-4.4 RATIO) 3.6 RATIO April 07, 2018 7:38am FREE T4 FREE T4(0.58-1.64 NG/DL) 0.73 NG/DL Result Comments: Patients having concentrations greater than or equal to 100 ng/ml of Biotin in their serum may exhibit falsely elevated Free T4 results. April 07, 2018 7:38am THYROID STIMULATING HORMONE THYROID STIMULATING HORMONE(0.450-5.330 uIU/ML) 0.640 uIU/ML Result Comments: Note reference range change due to a change in methodology April 07, 2018 7:38am GLYCOHEMOGLOBIN A1C %A1C(4.8-5.6 %) 5.5 % April 07, 2018 7:38am RAPID PLASMA REAGIN RAPID PLASMA REAGIN(NONREACTIVE) NONREACTIVE April 07, 2018 5:46pm VALPROIC ACID (DEPAKOTE) VALPROIC ACID (DEPAKOTE)(50.0-100.0 UG/ML) 65.4 UG/ML April 07, 2018 7:38am Microbiology Results Visit/Account #[id number] (April 06, 2018 6:17pm - April 08, 2018 3:40pm) Procedure Result GENITAL CULTURE GENITAL CULTURE Result Instance On April 07, 2018 4:45pm Source: VAGINAL Organism: STREP AGALACTIAE GROUP B COLONY COUNT MODERATE AMOUNT ADDITIONAL INFORMATION NO FURTHER WORKUP INDICATED Organism: ROUTINE NAM WET PREPARATION WET PREPARATION Result Instance On April 07, 2018 4:45pm Source: VAGINAL Result Prompts: WBC/HPF 20-30 TRICHOMONAS /HPF NO MOTILE TRICHOMONAS VAGINALIS SEEN CLUE CELLS /HPF 30-40 CHLAMYDIA TRACHOMATIS (PCR) CHLAMYDIA TRACHOMATIS (PCR) Result Instance On April 07, 2018 4:45pm Source: CERVIX Result Prompts: CHLAMYDIA TRACHOMATIS POSITIVE NEISSERIA GONORRHOEAE (PCR) NEISSERIA GONORRHOEAE (PCR) Result Instance On April 07, 2018 4:45pm Source: CERVIX Result Prompts: NEISSERIA GONORRHOEAE NEGATIVE Allergies and Adverse Reactions Allergies and Adverse Reactions Patient Unit Number: [id number] Agent Type Reaction Severity Status BENZONATATE Drug Allergy Unknown Moderate Active BEE POLLEN Drug Allergy Unknown Severe Active wasps Allergy Unknown Severe Active Problem List Problem List Patient Unit Number: [id number] Chronic Problems: Code/Condition Comments Documented Start Date Documented Resolved Date Code (s) Bipolar disorder, current episode depressed, severe, without ICD10: F31.4 Bipolar disorder, current episode depressed, severe, without psychotic features SNOMED: 582570947 Bipolar disorder, current episode depressed, severe, withoutpsychotic featu PTSD (post-traumatic stress disorder) ICD10: F43.10 PTSD (post-traumatic stress disorder) SNOMED: 92388023 Posttraumatic stress disorder Menorrhagia ICD10: N92.0 Menorrhagia SNOMED: 098752961 Menorrhagia Irregular menstrual cycle ICD10: N92.6 Irregular menstrual cycle SNOMED: 42938083 Irregular menstrual cycle Anemia ICD10: D64.9 Anemia SNOMED: 379671794 Anemia Plan of Care Plan Of Care Visit/Account #[id number] (April 06, 2018 6:17pm - April 08, 2018 3:40pm) Patient Instructions Instructions DI for Bipolar Disorder Vital Signs Vital Signs Visit/Account #[id number] (April 06, 2018 6:17pm - April 08, 2018 3:40pm) Sign First Result Last Result Code(s) Blood Pressure 98/ 63 mm[Hg] On April 06, 2018 10:53pm 99/ 57 mm[Hg] On April 08, 2018 8:54am 8462-4 BP Diastolic 8480-6 BP Systolic Heart Rate/Pulse Pulse Rate (adult): 82 /min On April 06, 2018 10:53pm Pulse Rate (adult): 90 /min On April 08, 2018 8:54am 8867-4 Heart Rate Respiratory Rate Respiratory Rate: 18 /min On April 06, 2018 10:53pm Respiratory Rate: 16 /min On April 08, 2018 8:54am 9279-1 Respiratory Rate Temperature in Fahrenheit Temperature (Fahrenheit): 98.0 [degF] On April 06, 2018 10:53pm Temperature (Fahrenheit): 97.5 [degF] On April 08, 2018 8:54am 8310-5 Body Temperature Functional Status Functional and Cognitive Status No Functional Status Data Medications Home Medications - Medications that the patient was taking prior to arrival at the hospital Visit/Account #[id number] (April 06, 2018 6:17pm - April 08, 2018 3:40pm) Medication Route Sig/Schedule Precondition/Indication Comments/Instructions Codes SHARIF PERRY(DIVALPROEX SODIUM) 500 MG TABLET.DR Dose: 500 MG ORAL 3 TIMES A DAY Divalproex Sodium 500 MG Delayed Release Oral Tablet (RxNorm): 0946925 DEPANJANA DR (DIVALPROEX SODIUM) NDC: 18389498241 MOBIC(MELOXICAM) 7.5 MG TAB Dose: 7.5 MG ORAL DAILY PAIN Rx Instructions: Take scheduled daily for one month, then prn. meloxicam 7.5 MG Oral Tablet [Mobic] (RxNorm): 581386 MOBIC (MELOXICAM) NDC: 54338244332 KEFLEX(CEPHALEXIN MONOHYDRATE) 500 MG CAPSULE Dose: 500 MG ORAL TWICE A DAY Cephalexin 500 MG Oral Capsule [Keflex] (RxNorm): 299054 KEFLEX (CEPHALEXIN MONOHYDRATE) NDC: 66427827057 NORCO 5-325(HYDROcodone BIT/ACETAMINOPHEN) 1 EACH TABLET Dose: 1 TAB ORAL Q4H PAIN Acetaminophen 325 MG / Hydrocodone Bitartrate 5 MG Oral Tablet [[place]] (RxNorm ): 510938 NORCO 5-325 (HYDROcodone BIT/ACETAMINOPHEN) NDC: 33176900990 PROAIR HFA(ALBUTEROL SULF) 8.5 GM HFA.AER.AD Dose: 2 PUFF INHALED EVERY 4 HOURS AIR HUNGER 200 ACTUAT Albuterol 0.09 MG/ACTUAT Metered Dose Inhaler [ProAir] (RxNorm): 905549 PROAIR HFA (ALBUTEROL SULF) NDC: 65842027039 ZYRTEC(CETIRIZINE HCL) 10 MG TABLET Dose: 10 MG ORAL DAILY cetirizine hydrochloride 10 MG Oral Tablet [Aller-Michelle] (RxNorm): 6128510 ZYRTEC (CETIRIZINE HCL) NDC: 93726749328 FLONASE(FLUTICASONE PROPIONATE) 16 GM NASAL SPRAY Dose: 2 SPRAYS IN NASAL DAILY CONGESTION Rx Instructions: 2 SPRAY(S) EACH NOSTRIL Fluticasone propionate 0.05 MG/ACTUAT Metered Dose Nasal [place] (RxNorm): 5167367 FLONASE (FLUTICASONE PROPIONATE) NDC: 90816884039 LAMICTAL(LamoTRIgine) 100 MG TAB Dose: 100 MG ORAL DAILY lamotrigine 100 MG Oral Tablet [Lamictal] (RxNorm): 756650 LAMICTAL (LamoTRIgine) NDC: 02532710139 Inpatient/Ordered Medications - Medications administered during hospital visit Visit/Account #[id number] (April 06, 2018 6:17pm - April 08, 2018 3:40pm) Medication Route Sig/Schedule Precondition/Indication Comments/Instructions Codes NICODERM 14 MG PATCH(NICOTINE) 1 PATCH PATCH Dose: 1 PATCH TOPICALLY DAILY PRN Reason: SMOKING CESSATION Label Comments: 6-10 cigarrettes per day. Wear gloves when handling or wash hands after handling 24 HR Nicotine 0.583 MG/HR Transdermal System (RxNorm): 058309 NICODERM 14 MG PATCH (NICOTINE) NDC: 56555415679 DESYREL(TraZODone HCL) 50 MG TAB Dose: 50 MG ORAL AT BEDTIME PRN Reason: SLEEP Label Comments: MAY INCREASE FALL RISK Trazodone Hydrochloride 50 MG Oral Tablet (RxNorm): 752879 DESYREL (TraZODone HCL) NDC: 48181216889 PERIACTIN(CYPROHEPTADINE HCL) 4 MG TAB Dose: 4 MG ORAL AT BEDTIME Cyproheptadine hydrochloride 4 MG Oral Tablet (RxNorm): 424456 PERIACTIN (CYPROHEPTADINE HCL) NDC: 73817727116 TRINTELLIX(VORTIOXETINE HYDROBROMIDE) 5 MG TAB Dose: 5 MG ORAL DAILY vortioxetine 5 MG Oral Tablet [Trintellix] (RxNorm): 0438131 TRINTELLIX (VORTIOXETINE HYDROBROMIDE) NDC: 83325759880 DEPAKOTE ER(DIVALPROEX SODIUM) 500 MG TAB Dose: 1500 MG ORAL DAILY@1900 Label Comments: DO NOT CUT OR CRUSH. TERATOGENIC. WOMEN SHOULD NOT HANDLE. 24 HR Divalproex Sodium 500 MG Extended Release Oral Tablet [Depakote] (RxNorm ): 2913653 DEPAKOTE ER (DIVALPROEX SODIUM) NDC: 48279594845 FLAGYL(MetroNIDAZOLE) 500 MG TAB Dose: 500 MG ORAL TWICE A DAY Metronidazole 500 MG Oral Tablet (RxNorm): 467083 FLAGYL (MetroNIDAZOLE) NDC: 77574169301 ZITHROMAX(AZITHROMYCIN) 500 MG TAB Dose: 1000 MG ORAL DAILY Special Dose Instructions: Zithromax 1gm po x 1 only Azithromycin 500 MG Oral Tablet (RxNorm): 206803 ZITHROMAX (AZITHROMYCIN) NDC: 34301004657 FERROUS SULFATE 325 MG TAB Dose: 325 MG ORAL DAILY Label Comments: TAKE WITH FOOD IF STOMACH UPSET OCCURS. OTHERWISE TAKE BETWEEN MEALS FOR MAXIMUM ABSORPTION. (FERROUS SULFATE) NDC: 22344869475 Discharge Medications - Medications that patient should continue to take. Review with physician Visit/Account #[id number] (April 06, 2018 6:17pm - April 08, 2018 3:40pm) Medication Route Sig/Schedule Precondition/Indication Comments/Instructions Codes PROAIR HFA(ALBUTEROL SULF) 8.5 GM HFA.AER.AD Dose: 2 PUFF INHALED EVERY 4 HOURS AIR HUNGER 200 ACTUAT Albuterol 0.09 MG/ACTUAT Metered Dose Inhaler [ProAir] (RxNorm): 126929 PROAIR HFA (ALBUTEROL SULF) NDC: 46890743231 ZYRTEC(CETIRIZINE HCL) 10 MG TABLET Dose: 10 MG ORAL DAILY cetirizine hydrochloride 10 MG Oral Tablet [Aller-Michelle] (RxNorm): 7115414 ZYRTEC (CETIRIZINE HCL) NDC: 56154780532 FLONASE(FLUTICASONE PROPIONATE) 16 GM NASAL SPRAY Dose: 2 SPRAYS IN NASAL DAILY CONGESTION Rx Instructions: 2 SPRAY(S) EACH NOSTRIL Fluticasone propionate 0.05 MG/ACTUAT Metered Dose Nasal [place] (RxNorm): 7491305 FLONASE (FLUTICASONE PROPIONATE) NDC: 41768690609 Cyproheptadine Hcl(CYPROHEPTADINE HCL) 4 MG TAB Dose: 4 MG ORAL AT BEDTIME Cyproheptadine Hcl (CYPROHEPTADINE HCL) NDC: 93552019305 Depakote Er(DIVALPROEX SODIUM) 500 MG TAB Dose: 1500 MG ORAL DAILY@1900 24 HR Divalproex Sodium 500 MG Extended Release Oral Tablet [Depakote] (RxNorm ): 3825366 Depakote Er (DIVALPROEX SODIUM) NDC: 47995415693 TRINTELLIX(VORTIOXETINE HYDROBROMIDE) 5 MG TABLET Dose: 5 MG ORAL DAILY vortioxetine 5 MG Oral Tablet [Trintellix] (RxNorm): 9561396 TRINTELLIX (VORTIOXETINE HYDROBROMIDE) NDC: 46267182105 DESYREL(TraZODone HCL) 50 MG TABLET Dose: 50 MG ORAL AT BEDTIME SLEEP Trazodone Hydrochloride 50 MG Oral Tablet (RxNorm): 912237 DESYREL (TraZODone HCL) NDC: 37602743299 Metronidazole(MetroNIDAZOLE) 500 MG TAB Dose: 500 MG ORAL TWICE A DAY Metronidazole 500 MG Oral Tablet (RxNorm): 377409 Metronidazole (MetroNIDAZOLE) NDC: 51411653657 FERROUS SULFate(FERROUS SULFATE) 325 MG TABLET Dose: 325 MG ORAL DAILY FERROUS SULFate (FERROUS SULFATE) NDC: 54294514862 History Of Encounters Encounters Visit/Account #[id number] (April 06, 2018 6:17pm - April 08, 2018 3:40pm) Account Status Physican Of Record Reason For Visit Visit Diagnosis Start Date/Time Stop Date/Time IN BALDO CASTAÑEDA MD SI Not Available Apr 06, 2018 6:17pm Apr 08, 2018 3:40pm History of Procedures Procedure List No procedures recorded. Discharge Instructions Discharge Instructions Visit/Account #[id number] (April 06, 2018 6:17pm - April 08, 2018 3:40pm) DISCHARGE INSTRUCTIONS Physician Documentation PROVIDER INSTRUCTIONS DISCHARGE DATE April 08, 2018 Discharge Diet As Tolerated, Regular Comfort Management as directed by your doctor Bowel Care As Needed Patient Received Medication with Foundation Assistance? N Samples Arranged for Pickup at [facility] N Other Discharge Instructions Please feel free to call if you have any questions concerning your home care instructions at , option 1. Please refer to your Aftercare Handout. REASON TO CALL PROVIDER Notify Physician if: Symptoms worsen or reappear FOLLOW UP APPOINTMENTS Follow Up Appointment Date/Time: Please follow up with your medical doctor for med refills/therapy as needed. You will need to follow up with Dr. Day in 2-4 weeks. PATIENT SUMMARY Health Summary Given to Patient Y Social History Social History No Social History Data. Immunizations Immunizations Patient Unit Number: [id number] Immunizations No immunizations recorded.
--- OUTSIDE RECORDS SUMMARY | 2018-10-20 10:57 | XMS REPORT | Continuity of Care Document ---
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 [id number] 04/17/2015 10:45:00 04/17/2015 23:59:00 DIS Outpatient PATRICIO FLANAGAN [facility] [id number] 03/01/2015 20:45:00 03/01/2015 23:27:00 DIS Emergency RAVINDRA REED [facility] [id number] 02/05/2015 14:00:00 02/05/2015 23:59:00 DIS Outpatient JUANY HULL, [facility] [id number] 11/25/2014 16:15:00 Document Registration [id number] 04/13/2014 18:08:00 Document Registration [id number] 03/06/2014 21:10:00 Document Registration [id number] 03/04/2014 15:15:00 Document Registration [id number] 01/30/2014 17:08:00 Document Registration [id number] 01/07/2014 16:38:00 Document Registration [id number] 09/22/2013 17:05:00 Document Registration [id number] 04/17/2013 16:44:00 Document Registration [id number] 09/15/2012 12:09:00 Document Registration [id number] 08/13/2012 10:19:00 Document Registration [id number] 09/13/2018 22:26:00 09/13/2018 23:59:00 DIS Emergency JOVANI BALBUENA MD [facility] ER SEIZURE [id number] 10/20/2018 10:32:00 ACT Emergency EDVIN PRINGLE APRN [facility] ER HX OF SEIZURES, FEELS LIKE SHE'S GOING TO HAVE ONE [id number] 01/09/2018 14:38:25 01/09/2018 17:49:43 DIS Outpatient Eze Harrington [facility] [id number] 05/13/2017 07:31:00 05/13/2017 23:59:59 CLS Preadmit [facility] ED [id number] 07/31/2018 05:09:00 07/31/2018 06:43:00 DIS Emergency JEREMY MORELOS APRN [facility] 20.ED [id number] 07/30/2018 15:49:00 07/30/2018 17:03:00 DIS Outpatient E[facility]ARRINGTON [facility] [id number] 08/02/2018 12:56:00 Document Registration [id number] 10/16/2018 08:00:00 10/16/2018 23:59:59 [facility] [address] [facility]
[2018-10-20] MEDS ORDERED: LORazepam INJ 2 MG/ML (ATIVAN) VIAL IVP PRN (11:00)
--- NOTE | 2018-10-20 11:03 | ED Neurological Problem ---
General Stated Complaint: HX OF SEIZURES, FEELS LIKE SHE'S GOING TO HAVE ONE Source: patient Exam Limitations: no limitations History of Present Illness Date Seen by Provider: Oct 20, 2018 Time Seen by Provider: 11:00 Initial Comments [facility] with reports of a seizure. She has a known seizure disorder she says she takes Depakote for it as well as another antiepileptic but she cannot recall the name of it. Her last seizure was didn't August and she presented here for that one as well. She states that she still "feels funny, eyes are moving all over the place, feels weak" and this is typical after she has a seizure. She denies fevers or chills. She also has bipolar disorder and depression for which she takes Prozac. Timing/Duration: 1 hour Severity: mild Associated Symptoms: seizures Allergies and Home Medications Allergies Coded Allergies: No Known Drug Allergies (Unverified , 09/13/18) Patient Home Medication List Home Medication List Reviewed: Yes Review of Systems Review of Systems Constitutional: see HPI Eyes: No Symptoms Reported Ears, Nose, Mouth, Throat: no symptoms reported Respiratory: no symptoms reported Cardiovascular: no symptoms reported Genitourinary: no symptoms reported Musculoskeletal: no symptoms reported Skin: no symptoms reported Psychiatric/Neurological: See HPI, Other Endocrine: No Symptoms Reported Hematologic/Lymphatic: No Symptoms Reported Past Ebauudf-Ywfzwg-Xxnrjd Hx Patient Social History Drug of Choice: Meth Type Used: Cigarettes Recent Foreign Travel: No Contact w/Someone Who Travel: No Recent Hopitalizations: No Seasonal Allergies Seasonal Allergies: No Past Medical History Surgeries: No Respiratory: No Cardiac: No Neurological: Yes Seizure Disorder Genitourinary: No Gastrointestinal: No Musculoskeletal: No Endocrine: No HEENT: No Cancer: No Psychosocial: Yes Depression Integumentary: No Blood Disorders: No Physical Exam Vital Signs Vital Signs - First Documented 10/20/18 11:00 Temp 96.3 Pulse 97 Resp 18 B/P (MAP) 112/76 (88) Pulse Ox 100 Capillary Refill : Height, Weight, BMI Height: 5'5.00" Weight: 130lbs. oz. 58.324620nq; BMI Method:Stated General Appearance: WD/WN, no apparent distress HEENT: PERRL/EOMI, normal ENT inspection Neck: non-tender, full range of motion Respiratory: no respiratory distress, no accessory muscle use Gastrointestinal: non tender, soft Extremities: normal range of motion, non-tender Neurologic/Psychiatric: alert, normal mood/affect, oriented x 3 Crainal Nerves: normal hearing, normal speech, PERRL Skin: normal color, warm/dry Ambulatory to room 5. Able to walk to the bathroom to give us a urine sample without abnormal gait. GCS 15. Converses appropriately. Progress/Results/Core Measures Results/Orders Lab Results Laboratory Tests Test 10/20/18 11:00 10/20/18 11:10 Range/Units Urine Opiates Screen NEGATIVE NEGATIVE Urine Oxycodone Screen NEGATIVE NEGATIVE Urine Methadone Screen NEGATIVE NEGATIVE Urine Propoxyphene Screen NEGATIVE NEGATIVE Urine Barbiturates Screen NEGATIVE NEGATIVE Ur Tricyclic Antidepressants Screen NEGATIVE NEGATIVE Urine Phencyclidine Screen NEGATIVE NEGATIVE Urine Amphetamines Screen NEGATIVE NEGATIVE Urine Methamphetamines Screen NEGATIVE NEGATIVE Urine Benzodiazepines Screen NEGATIVE NEGATIVE Urine Cocaine Screen NEGATIVE NEGATIVE Urine Cannabinoids Screen NEGATIVE NEGATIVE White Blood Count 4.3 4.3-11.0 10^3/uL Red Blood Count 4.39 4.35-5.85 10^6/uL Hemoglobin 12.4 11.5-16.0 G/DL Hematocrit 38 35-52 % Mean Corpuscular Volume 86 80-99 FL Mean Corpuscular Hemoglobin 28 25-34 PG Mean Corpuscular Hemoglobin Concent 33 32-36 G/DL Red Cell Distribution Width 15.7 H 10.0-14.5 % Platelet Count 270 130-400 10^3/uL Mean Platelet Volume 10.3 7.4-10.4 FL Neutrophils (%) (Auto) 54 42-75 % Lymphocytes (%) (Auto) 34 12-44 % Monocytes (%) (Auto) 10 0-12 % Eosinophils (%) (Auto) 3 0-10 % Basophils (%) (Auto) 0 0-10 % Neutrophils # (Auto) 2.3 1.8-7.8 X 10^3 Lymphocytes # (Auto) 1.5 1.0-4.0 X 10^3 Monocytes # (Auto) 0.4 0.0-1.0 X 10^3 Eosinophils # (Auto) 0.1 0.0-0.3 10^3/uL Basophils # (Auto) 0.0 0.0-0.1 10^3/uL Sodium Level 137 135-145 MMOL/L Potassium Level 4.1 3.6-5.0 MMOL/L Chloride Level 106 98-107 MMOL/L Carbon Dioxide Level 20 L 21-32 MMOL/L Anion Gap 11 5-14 MMOL/L Blood Urea Nitrogen 14 7-18 MG/DL Creatinine 0.75 0.60-1.30 MG/DL Estimat Glomerular Filtration Rate > 60 BUN/Creatinine Ratio 19 Glucose Level 105 70-105 MG/DL Calcium Level 9.5 8.5-10.1 MG/DL Corrected Calcium 8.5-10.1 MG/DL Total Bilirubin 0.6 0.1-1.0 MG/DL Aspartate Amino Transf (AST/SGOT) 20 5-34 U/L Alanine Aminotransferase (ALT/SGPT) 14 0-55 U/L Alkaline Phosphatase 65 40-136 U/L Total Protein 7.2 6.4-8.2 GM/DL Albumin 4.6 H 3.2-4.5 GM/DL Serum Test, Qualitative NEGATIVE NEGATIVE Serum Alcohol < 10 <10 MG/DL My Orders Orders - EDVIN PRINGLE APRN Cbc With Automated Diff (10/20/18 10:51) Drug Screen Stat (Urine) (10/20/18 10:51) Hcg,Qualitative Serum (10/20/18 10:51) Alcohol (10/20/18 10:51) Comprehensive Metabolic Panel (10/20/18 10:51) Iv Heplock-Insert (Order) (10/20/18 10:51) Lorazepam Injection (Ativan Injection) (10/20/18 11:00) Medications Given in ED Current Medications Medications Dose Ordered Sig/Colt Route Start Time Stop Time Status Last Admin Dose Admin Lorazepam 1 mg ONCE PRN IVP 10/20/18 11:00 10/20/18 11:25 1 MG Vital Signs/I&O 10/20/18 11:00 Temp 96.3 Pulse 97 Resp 18 B/P (MAP) 112/76 (88) Pulse Ox 100 Departure Impression Primary Impression: History of seizures Disposition: HOME, SELF-CARE Condition: Stable Departure-Patient Inst. Decision time for Depature: 11:02 Referrals: NO,LOCAL PHYSICIAN (PCP/Family) Primary Care Physician Patient Instructions: Seizures Add. Discharge Instructions: 1. Follow-up with your regular doctor next week 2. Return to ER for any concerns 3. Unfortunately if you have have a seizure disorder U will still have seizures but medication can reduce the frequency of these. You do not need to come to the emergency room unless the seizure lasts longer than 5 minutes and cannot be stopped. Work/School Note: Work Release Form Date Seen in the Emergency Department: Oct 20, 2018 Return to Work: Oct 21, 2018 EDVIN PRINGLE APRN Oct 20, 2018 11:03
[2018-10-20 11:17] LABS: AMPHETAMINE SCREEN, URINE NEGATIVE (NEGATIVE); BARBITURATE SCREEN URINE NEGATIVE (NEGATIVE); BENZODIAZEPINES SCREEN URINE NEGATIVE (NEGATIVE); CANNABINOID SCREEN, URINE NEGATIVE (NEGATIVE); COCAINE SCREEN URINE NEGATIVE (NEGATIVE); METHADONE STAT NEGATIVE (NEGATIVE); METHAMPHETAMINE SCREEN URINE S NEGATIVE (NEGATIVE); OPIATE SCREEN URINE NEGATIVE (NEGATIVE); OXYCODONE STAT NEGATIVE (NEGATIVE); PROPOXYPHENE STAT NEGATIVE (NEGATIVE); TRICYCLIC ANTIDEPRESSANTS SCRE NEGATIVE (NEGATIVE)
[2018-10-20 11:18] LABS: BASOPHILS % (AUTO) 0 % (0-10); EOSINOPHILS # (AUTO) 0.1 10^3/uL (0.0-0.3); EOSINOPHILS % (AUTO) 3 % (0-10); HEMATOCRIT 38 % (35-52); HEMOGLOBIN 12.4 G/DL (11.5-16.0); LYMPHOCYTES # (AUTO) 1.5 X 10^3 (1.0-4.0); LYMPHOCYTES % (AUTO) 34 % (12-44); MEAN CORPUSCULAR HEMOGLOBIN 28 PG (25-34); MEAN CORPUSCULAR HGB CONC 33 G/DL (32-36); MEAN CORPUSCULAR VOLUME 86 FL (80-99); MEAN PLATELET VOLUME 10.3 FL (7.4-10.4); MONOCYTES # (AUTO) 0.4 X 10^3 (0.0-1.0); MONOCYTES % (AUTO) 10 % (0-12); NEUTROPHILS # (AUTO) 2.3 X 10^3 (1.8-7.8); NEUTROPHILS % (AUTO) 54 % (42-75); PLATELET COUNT 270 10^3/uL (130-400); RED CELL DISTRIBUTION WIDTH 15.7 % (10.0-14.5); WHITE BLOOD COUNT 4.3 10^3/uL (4.3-11.0)
[2018-10-20 11:38] LABS: ALANINE AMINOTRANSFERASE 14 U/L (0-55); ALBUMIN 4.6 GM/DL (3.2-4.5); ALKALINE PHOSPHATASE 65 U/L (40-136); BILIRUBIN,TOTAL 0.6 MG/DL (0.1-1.0); BUN/CREATININE RATIO 19; CALCIUM 9.5 MG/DL (8.5-10.1); CARBON DIOXIDE 20 MMOL/L (21-32); CHLORIDE 106 MMOL/L (98-107); CREATININE SERUM 0.75 MG/DL (0.60-1.30); GFR ESTIMATED > 60; GLUCOSE 105 MG/DL (70-105); POTASSIUM 4.1 MMOL/L (3.6-5.0); SODIUM 137 MMOL/L (135-145); TOTAL PROTEIN 7.2 GM/DL (6.4-8.2)
[2018-10-20 11:54] VITALS: BP 103/62
== END 2018-10-20 11:54 | disposition home or self-care (01) ==
LOC: EDUNIT# 10:31 → ER 10:32
DX: G40.909 Epilepsy, unspecified, not intractable, without status epilepticus (principal); F31.9 Bipolar disorder, unspecified
CPT/HCPCS: 36415; 80053; 80306; 80320; 84703; 85025

== ENCOUNTER 2018-10-23 07:59 | Emergency (ER) | payer MEDICAID ==
[~2018-10-23] VITALS: Ht 165.1 cm; Wt 61.2 kg
--- OUTSIDE RECORDS SUMMARY | 2018-10-23 08:05 | XMS REPORT | Continuity of Care Document ---
Author Author [facility] Unknown Phone Unavailable Allergies Active Description Code Type Severity Reaction Onset Reported/Identified Relationship to Patient Clinical Status Yes Bee stings [id number] Animal Allergy Moderate N/A Yes Erythromycin Base [id number] Drug Allergy Moderate diarrhea Yes Erythromycin Base 34211443H1 Drug Allergy Moderate N/A Yes NO KNOWN DRUG ALLERGIES UNKNOWN NO KNOWN DRUG ALLERG Yes NO KNOWN ALLERGIES [id number] Drug Allergy N/A N/A 09/05/2016 Yes NO KNOWN ALLERGIES [id number] Drug Allergy N/A N/A 09/05/2016 Yes NO KNOWN ALLERGIES [id number] Drug Allergy N/A N/A 09/05/2016 Yes benzonatate Allergy S Rash 04/06/2018 Yes wasps wasps Miscellaneous Allergy Severe N/A 04/06/2018 Yes bee pollen [id number] Drug Allergy Severe N/A 07/30/2018 Yes benzonatate [id number] Drug Allergy Moderate N/A 07/30/2018 Yes venom-honey bee [id number] Drug Allergy Severe Anaphylaxis 07/31/2018 Yes wasps wasps Miscellaneous Allergy Severe Anaphylaxis 07/31/2018 Yes benzonatate [id number] Drug Allergy Moderate Nausea 07/31/2018 Yes No Known Drug Allergies [id number] Drug Allergy Unknown N/A 09/13/2018 Medications Medication [...] FIGUEROA MD Z91.030 BEE ALLERGY STATUS 07/31/2018 JEREMY MORELOS APRN [employer] F F17.210 07/31/2018 JEREMY MORELOS APRN [employer] F M25.462 07/31/2018 JEREMY [facility]ORELOS [facility] M25.562 07/31/2018 JEREMY MORELOS [facility] F Z91.030 08/21/2018 Noe Gutierrez 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, UNSPECIFIED USE 08/21/2018 Noe Gutierrez 780.39 OTHER CONVULSIONS 08/21/2018 Noe Gutierrez F15.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, UNCOMPLICATED 08/21/2018 Noe Gutierrez R56.9 UNSPECIFIED CONVULSIONS 09/13/2018 ESHA HULL, JOVANI J Ot 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, SUBCU OF 09/13/2018 JOVANI BALBUENA MD Ot F32.9 MAJOR DEPRESSIVE DISORDER, SINGLE EPISOD 09/13/2018 JOVANI BALBUENA MD Ot G40.909 EPILEPSY, UNSP, NOT INTRACTABLE, WITHOUT 09/13/2018 JOVANI BALBUENA MD J Ot R25.9 UNSPECIFIED ABNORMAL INVOLUNTARY MOVEMEN 09/24/2018 JOVANI BALBUENA MD J Ot 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, SUBCU OF 09/24/2018 JOVANI BALBUENA MD Ot F32.9 MAJOR DEPRESSIVE DISORDER, SINGLE EPISOD 09/24/2018 JOVANI BALBUENA MD Ot G40.909 EPILEPSY, UNSP, NOT INTRACTABLE, WITHOUT 09/24/2018 JOVANI BALBUENA MD Ot R25.9 UNSPECIFIED ABNORMAL INVOLUNTARY MOVEMEN 10/23/2018 EDVIN PRINGLE APRN Ot F31.9 BIPOLAR DISORDER, UNSPECIFIED 10/23/2018 EDVIN PRINGLE APRN Ot G40.909 EPILEPSY, UNSP, NOT INTRACTABLE, WITHOUT Procedures Code Description [place] [address] Office/outpatient visit; established patient, level 3 03/28/2016 05908 CMP 03/28/2016 31870 Depakane level 03/28/2016 64742 CBC with auto diff 03/28/2016 02760 Office/outpatient visit; established patient, level 3 03/28/2016 64992 UA with screen for culture 12/22/2016 04619 CBC with auto diff 12/22/2016 59735 Sedimentation rate, non- automated 12/22/2016 76481 Office/outpatient visit; established patient, level 3 12/22/2016 64673 Office/outpatient visit; established patient, level 3 01/10/2017 19774 Inc/drain Abscess Simple Josefina Bradley 05/03/2017 RFPT Physical Therapist Referral 01/09/2018 34035 Preventive medicine, established patient, age 18-39 years 2017 PM03RYL PHARMACOTHERAPY FOR SUBSTANCE ABUSE, NICOTINE REPL 04/06/2018 [...] BILIRUBIN, CONJUG & UNCONJUG NEGATIVE NEGATIVE Specific [place],Urine <=1.005 1.015-1.025 Leukocyte Esterase,Urine NEGATIVE NEGATIVE Nitrate,Urine NEGATIVE NEGATIVE Urobilinogen,Urine 0.2 EU/DL NORMAL Occult Blood,Urine - Dipstick NEGATIVE NEGATIVE Urine Microscopic (UA) Microscopic Not Ind. [facility] L550.3820 - 04/06/18 12:00 Test Result, Urine [...] 0.450-5.330 WETP - 04/07/18 16:45 WET PREPARATION NRG CHLPCR - 04/07/18 16:45 CHLAMYDIA TRACHOMATIS (PCR) NRG GCPCR - 04/07/18 16:45 NEISSERIA GONORRHOEAE (PCR) NRG GENC - 04/07/18 16:45 GENITAL CULTURE NRG CBCDIFF - 04/07/18 17:46 WHITE BLOOD COUNT [...] detection NEGATIVE NEGATIVE Comprehensive metabolic panel - 09/13/18 22:33 Serum or plasma sodium measurement (moles/volume) [...] urinalysis with reflex to culture NO NRG Urine drug screening test - 10/20/18 11:00 Urine phencyclidine detection by screening method NEGATIVE NEGATIVE Urine benzodiazepines detection by screening method NEGATIVE NEGATIVE Urine cocaine detection NEGATIVE NEGATIVE Urine amphetamines detection by screening method NEGATIVE NEGATIVE Urine methamphetamine detection by screening method NEGATIVE NEGATIVE Urine cannabinoids detection by screening method NEGATIVE NEGATIVE Urine opiates detection by screening method NEGATIVE NEGATIVE Urine barbiturates detection NEGATIVE NEGATIVE Screening urine tricyclic antidepressants detection NEGATIVE NEGATIVE Urine methadone detection by screening method NEGATIVE NEGATIVE Urine oxycodone detection NEGATIVE NEGATIVE Urine propoxyphene detection NEGATIVE NEGATIVE Complete blood count (CBC) with automated white blood cell (WBC) differential - 10/20/18 11:10 Blood leukocytes automated count (number/volume) 4.3 10*3/uL 4.3-11.0 Blood erythrocytes automated count (number/volume) 4.39 10*6/uL 4.35-5.85 Venous blood hemoglobin measurement (mass/volume) 12.4 g/dL 11.5-16.0 Blood hematocrit (volume fraction) 38 % 35-52 Automated erythrocyte mean corpuscular volume 86 [foz_us] 80-99 Automated erythrocyte mean corpuscular hemoglobin (mass per erythrocyte) 28 pg 25-34 Automated erythrocyte mean corpuscular hemoglobin concentration measurement ( mass/volume) 33 g/dL 32-36 Automated erythrocyte distribution width ratio 15.7 % 10.0-14.5 Automated blood platelet count (count/volume) 270 10*3/uL 130-400 Automated blood platelet mean volume measurement 10.3 [foz_us] 7.4-10.4 Automated blood neutrophils/100 leukocytes 54 % 42-75 Automated blood lymphocytes/100 leukocytes 34 % 12-44 Blood monocytes/100 leukocytes 10 % 0-12 Automated blood eosinophils/100 leukocytes 3 % 0-10 Automated blood basophils/100 leukocytes 0 % 0-10 Blood neutrophils automated count (number/volume) 2.3 10*3 1.8-7.8 Blood lymphocytes automated count (number/volume) 1.5 10*3 1.0-4.0 Blood monocytes automated count (number/volume) 0.4 10*3 0.0-1.0 Automated eosinophil count 0.1 10*3/uL 0.0-0.3 Automated blood basophil count (count/volume) 0.0 10*3/uL 0.0-0.1 Serum or plasma choriogonadotropin ( test) detection - 10/20/18 11:10 Serum or plasma choriogonadotropin ( test) detection NEGATIVE NEGATIVE Comprehensive metabolic panel - 10/20/18 11:10 Serum or plasma sodium measurement (moles/volume) 137 mmol/L 135-145 Serum or plasma potassium measurement (moles/volume) 4.1 mmol/L 3.6-5.0 Serum or plasma chloride measurement (moles/volume) 106 mmol/L 98-107 Carbon dioxide 20 mmol/L 21-32 Serum or plasma anion gap determination (moles/volume) 11 mmol/L 5-14 Serum or plasma urea nitrogen measurement (mass/volume) 14 mg/dL 7-18 Serum or plasma creatinine measurement (mass/volume) 0.75 mg/dL 0.60-1.30 Serum or plasma urea nitrogen/creatinine mass ratio 19 NRG Serum or plasma creatinine measurement with calculation of estimated glomerular filtration rate > NRG Serum or plasma glucose measurement (mass/volume) 105 mg/dL 70-105 Serum or plasma calcium measurement (mass/volume) 9.5 mg/dL 8.5-10.1 Serum or plasma total bilirubin measurement (mass/volume) 0.6 mg/dL 0.1-1.0 Serum or plasma alkaline phosphatase measurement (enzymatic activity/volume) 65 U/L 40-136 Serum or plasma aspartate aminotransferase measurement (enzymatic activity/ volume) 20 U/L 5-34 Serum or plasma alanine aminotransferase measurement (enzymatic activity/volume ) 14 U/L 0-55 Serum or plasma protein measurement (mass/volume) 7.2 g/dL 6.4-8.2 Serum or plasma albumin measurement (mass/volume) 4.6 g/dL 3.2-4.5 Serum or plasma ethanol measurement (mass/volume) - 10/20/18 11:10 Serum or plasma ethanol measurement (mass/volume) < mg/dL <10 Encounters ACCT No. Visit Date/Time Discharge Status Pt. Type Provider Facility Loc./Unit Complaint [id number] 01/29/2015 14:41:00 01/29/2015 23:59:59 [facility] [id number] 04/29/2017 02:52:00 04/29/2017 23:59:59 CLS Preadmit [facility] ED [id number] 08/21/2018 09:25:00 Document Registration [id number] 04/06/2018 11:58:00 04/06/2018 16:50:00 DIS Emergency CARRASCO , ESTER [facility] psych eval [id number] 04/06/2018 18:17:00 04/08/2018 15:40:00 DIS Inpatient CAROLINA HULL, [facility] [id number] 05/13/2017 07:33:00 05/13/2017 11:33:00 DIS Emergency FRANKLYN HULL, TRACIE Bartlett [facility] ED [id number] 04/29/2017 02:55:00 04/29/2017 03:32:00 DIS Emergency ESHA HULL, JILLIAN Schultz [facility] ED [id number] 10/07/2016 13:34:00 Document Registration [id number] 12/31/2014 05:48:00 Document Registration [id number] 11/19/2014 17:57:00 Document Registration [id number] 11/08/2014 00:53:00 Document Registration [id number] 10/20/2014 15:04:00 Document Registration [id number] 10/07/2014 17:25:00 Document Registration [id number] 10/06/2014 17:12:00 Document Registration [id number] 09/02/2014 14:47:00 Document Registration [id number] 07/09/2014 19:50:00 Document Registration [id number] 03/28/2014 15:36:00 Document Registration [id number] 04/07/2013 14:54:00 Document Registration [id number] 03/22/2013 13:30:00 Document Registration [id number] 03/20/2013 16:18:00 Document Registration [id number] 02/10/2013 13:45:00 Document Registration [id number] 01/28/2013 21:53:00 Document Registration [id number] 01/17/2013 13:24:00 Document Registration [id number] 12/19/2012 11:04:00 Document Registration [id number] 10/13/2012 16:29:00 Document Registration [id number] 01/16/2011 21:50:00 Document Registration [id number] 01/14/2011 01:24:00 Document Registration [id number] 01/10/2011 13:06:00 Document Registration [id number] 12/05/2010 14:31:00 Document Registration [id number] 09/13/2008 20:56:00 Document Registration [id number] 09/04/2008 00:02:00 Document Registration [id number] 06/13/2007 15:10:00 Document Registration [id number] 08/21/2018 09:25:00 08/21/2018 12:50:00 [id number] 08/21/2018 09:38:26 Document Registration [id number] 05/21/2017 09:56:57 Document Registration [id number] 01/29/2015 14:42:56 ACT Document Registration [id number] 09/05/2016 14:30:00 09/05/2016 23:59:59 CLS Outpatient OLGA HULL, [facility] [id number] 03/01/2015 20:43:00 03/01/2015 23:59:59 CLS Preadmit [facility] [id number] 01/10/2017 14:00:00 01/10/2017 23:59:00 DIS Outpatient JUANY HULL, EZE Squires [facility] [id number] 12/22/2016 16:33:00 12/22/2016 23:59:00 DIS Outpatient JUANY HULL, EZE Sqiures [facility] [id number] 06/18/2016 12:55:00 06/18/2016 23:59:00 DIS Outpatient GUS GIBSON [id number] 04/28/2016 08:00:00 04/28/2016 23:59:59 CLS Preadmit JUANY HULL, EZE Squires [facility] [id number] 04/09/2016 21:10:00 04/09/2016 22:57:00 DIS Emergency MONSTER VUONG APRN [facility]. [id number] 03/28/2016 09:40:00 03/28/2016 23:59:00 DIS Outpatient JUANY HULL, [facility] [id number] 02/18/2016 16:00:00 02/18/2016 23:59:00 DIS VIRGIE HARRINGTON MD, [facility] [id number] 06/14/2015 15:50:00 06/14/2015 23:59:00 DIS Outpatient MONSTER VUONG [facility] [id number] 04/17/2015 10:45:00 04/17/2015 23:59:00 DIS Outpatient PATRICIO FLANAGAN [facility] [id number] 03/01/2015 20:45:00 03/01/2015 23:27:00 DIS Emergency RAVINDRA REED [facility]. [id number] 02/05/2015 14:00:00 02/05/2015 23:59:00 DIS Outpatient JUANY HULL, [facility] [id number] 11/25/2014 16:15:00 Document Registration [id number] 04/13/2014 18:08:00 Document Registration [id number] 03/06/2014 21:10:00 Document Registration [id number] 03/04/2014 15:15:00 Document Registration [id number] 01/30/2014 17:08:00 Document Registration [id number] 01/07/2014 16:38:00 Document Registration [id number] 09/22/2013 17:05:00 Document Registration [id number] 04/17/2013 16:44:00 Document Registration [id number] 09/15/2012 12:09:00 Document Registration [id number] 08/13/2012 10:19:00 Document Registration [id number] 10/20/2018 10:32:00 10/20/2018 11:54:00 DIS Outpatient EDVIN PRINGLE APRN [facility] ER HX OF SEIZURES, FEELS LIKE SHE'S GOING TO HAVE ONE [id number] 09/13/2018 22:26:00 09/13/2018 23:59:00 DIS Emergency ESHA HULL, JOVANI Fagan [facility] ER SEIZURE [id number] 10/23/2018 07:59:00 ACT Emergency ANGELA HULL, ANT Rosenthal [facility] ER SEIZURE [id number] 01/09/2018 14:38:25 01/09/2018 17:49:43 DIS Outpatient Eze Harrington [facility] [id number] 05/13/2017 07:31:00 05/13/2017 [facility]59:59 [facility] [id number] 07/31/2018 05:09:00 07/31/2018 06:43:00 DIS Emergency JEREMY MORELOS APRN [facility] 20.ED [id number] 07/30/2018 15:49:00 07/30/2018 17:03:00 DIS Outpatient EZE HARRINGTON MD [place] [id number] 08/02/2018 12:56:00 Document Registration [id number] 10/16/2018 08:00:00 10/16/2018 23:59:59 C[facility]
[2018-10-23] MEDS ORDERED: DIVA-76 (08:12)
[2018-10-23] MEDS ORDERED: FLUO20TA28 (08:12)
[2018-10-23] MEDS ORDERED: ARIP5TAB20 (08:12)
[2018-10-23] MEDS ORDERED: TOPI25TA10 (08:12)
--- NOTE | 2018-10-23 08:12 | NUR ---
BLOOD DRAWN BY [facility] NURSING STUDENTS.
[2018-10-23 08:22] LABS: BASOPHILS % (AUTO) 0 % (0-10); EOSINOPHILS # (AUTO) 0.2 10^3/uL (0.0-0.3); EOSINOPHILS % (AUTO) 4 % (0-10); HEMATOCRIT 35 % (35-52); HEMOGLOBIN 11.2 G/DL (11.5-16.0); LYMPHOCYTES # (AUTO) 1.6 X 10^3 (1.0-4.0); LYMPHOCYTES % (AUTO) 33 % (12-44); MEAN CORPUSCULAR HEMOGLOBIN 28 PG (25-34); MEAN CORPUSCULAR HGB CONC 32 G/DL (32-36); MEAN CORPUSCULAR VOLUME 88 FL (80-99); MEAN PLATELET VOLUME 10.7 FL (7.4-10.4); MONOCYTES # (AUTO) 0.5 X 10^3 (0.0-1.0); MONOCYTES % (AUTO) 10 % (0-12); NEUTROPHILS # (AUTO) 2.5 X 10^3 (1.8-7.8); NEUTROPHILS % (AUTO) 53 % (42-75); PLATELET COUNT 245 10^3/uL (130-400); RED CELL DISTRIBUTION WIDTH 15.7 % (10.0-14.5); WHITE BLOOD COUNT 4.8 10^3/uL (4.3-11.0)
--- NOTE | 2018-10-23 08:37 | ED Neurological Problem ---
General Chief Complaint: Neurological Problems Stated Complaint: SEIZURE Nursing Triage Note: TO ED PER EMS WAS WITTNESSED HAVNG A SEIZURE WHILE STANDING. EMS REPORT SHE WAS NOT POSTICTAL ON THEIR ARRIVAL. SITTING UP ON EMS COT ON ARRIVAL TO ER. PATIENT REPORTS HAS HAD THESE TYPE OF SEIZURES SINCE AUG. Nursing Sepsis Screen: No Definite Risk Source: patient Exam Limitations: no limitations History of Present Illness Date Seen by Provider: Oct 23, 2018 Time Seen by Provider: 08:10 Initial Comments Here with report of seizure this morning. Apparently she had gone to the bathroom and when walking back she was shaking. One of her friends witnessed this and was concerned so they called EMS. Apparently the patient has diagnosis of seizure disorder so poorly although she has not seen a neurologist and is only going through [facility] currently. Not postictal. She able to walk to the EMS cot. Able to really story from this morning. Denies injury or other concerns. Reports taking medications as directed. Timing/Duration: 1/2 hour Severity: mild Associated Symptoms: No confusion, No fever/chills, No loss of consciousness, No nausea/vomiting; seizures; No slurred speech, No vision changes, No weakness Allergies and Home Medications Allergies Coded Allergies: No Known Drug Allergies (Unverified , 09/13/18) Patient Home Medication List Home Medication List Reviewed: Yes Review of Systems Review of Systems Constitutional: see HPI; No chills, No fever Eyes: No Symptoms Reported Ears, Nose, Mouth, Throat: no symptoms reported Respiratory: no symptoms reported Cardiovascular: no symptoms reported Gastrointestinal: No abdominal pain, No nausea, No vomiting Genitourinary: no symptoms reported Musculoskeletal: no symptoms reported Skin: no symptoms reported Psychiatric/Neurological: Denies Anxiety; Other (shaking all over. This is resolved. Does admit to increased stressors.) Endocrine: No Symptoms Reported All Other Systems Reviewed Negative Unless Noted: Yes Past Qtbdbnn-Ukdrvz-Kysfak Hx Past Med/Social Hx: Reviewed Nursing Past Med/Soc Hx Patient Social History Alcohol Use: Denies Use Recreational Drug Use: No Drug of Choice: Meth Smoking Status: Current Everyday Smoker Type Used: Cigarettes Recent Foreign Travel: No Contact w/Someone Who Travel: No Recent Infectious Disease Expo: No Recent Hopitalizations: No Seasonal Allergies Seasonal Allergies: No Past Medical History Surgeries: Yes Appendectomy Respiratory: No Cardiac: No Neurological: Yes Seizure Disorder Genitourinary: No Gastrointestinal: No Musculoskeletal: No Endocrine: No HEENT: No Cancer: No Psychosocial: Yes Bipolar, Depression Integumentary: No Blood Disorders: No Family Medical History Reviewed Nursing Family Hx Physical Exam Vital Signs Vital Signs - First Documented 10/23/18 08:02 Temp 96.6 Pulse 79 Resp 18 B/P (MAP) 101/63 (76) Pulse Ox 97 Capillary Refill : Less Than 3 Seconds Height, Weight, BMI Height: 5'5.00" Weight: 135lbs. oz. [id number]; BMI Method:Stated General Appearance: WD/WN, no apparent distress HEENT: PERRL/EOMI, pharynx normal Neck: full range of motion, supple Respiratory: lungs clear, normal breath sounds Cardiovascular: regular rate, rhythm, no murmur Gastrointestinal: non tender, soft Back: normal inspection, no CVA tenderness, no vertebral tenderness Extremities: non-tender, normal inspection Neurologic/Psychiatric: alert, normal mood/affect, oriented x 3 Crainal Nerves: normal hearing, normal speech, PERRL Motor/Sensory: no motor deficit, no sensory deficit Skin: normal color, warm/dry Progress/Results/Core Measures Results/Orders Lab Results Laboratory Tests Test 10/23/18 08:12 10/23/18 08:57 Range/Units White Blood Count 4.8 4.3-11.0 10^3/uL Red Blood Count 3.96 L 4.35-5.85 10^6/uL Hemoglobin 11.2 L 11.5-16.0 G/DL Hematocrit 35 35-52 % Mean Corpuscular Volume 88 80-99 FL Mean Corpuscular Hemoglobin 28 25-34 PG Mean Corpuscular Hemoglobin Concent 32 32-36 G/DL Red Cell Distribution Width 15.7 H 10.0-14.5 % Platelet Count 245 130-400 10^3/uL Mean Platelet Volume 10.7 H 7.4-10.4 FL Neutrophils (%) (Auto) 53 42-75 % Lymphocytes (%) (Auto) 33 12-44 % Monocytes (%) (Auto) 10 0-12 % Eosinophils (%) (Auto) 4 0-10 % Basophils (%) (Auto) 0 0-10 % Neutrophils # (Auto) 2.5 1.8-7.8 X 10^3 Lymphocytes # (Auto) 1.6 1.0-4.0 X 10^3 Monocytes # (Auto) 0.5 0.0-1.0 X 10^3 Eosinophils # (Auto) 0.2 0.0-0.3 10^3/uL Basophils # (Auto) 0.0 0.0-0.1 10^3/uL Sodium Level 139 135-145 MMOL/L Potassium Level 3.8 3.6-5.0 MMOL/L Chloride Level 111 H 98-107 MMOL/L Carbon Dioxide Level 18 L 21-32 MMOL/L Anion Gap 10 5-14 MMOL/L Blood Urea Nitrogen 10 7-18 MG/DL Creatinine 0.69 0.60-1.30 MG/DL Estimat Glomerular Filtration Rate > 60 BUN/Creatinine Ratio 14 Glucose Level 88 70-105 MG/DL Calcium Level 8.8 8.5-10.1 MG/DL Corrected Calcium 8.8 8.5-10.1 MG/DL Magnesium Level 2.0 1.8-2.4 MG/DL Total Bilirubin 0.5 0.1-1.0 MG/DL Aspartate Amino Transf (AST/SGOT) 17 5-34 U/L Alanine Aminotransferase (ALT/SGPT) 12 0-55 U/L Alkaline Phosphatase 60 40-136 U/L Total Protein 6.2 L 6.4-8.2 GM/DL Albumin 4.0 3.2-4.5 GM/DL Thyroid Stimulating Hormone (TSH) 0.90 0.35-4.94 UIU/ML Serum Test, Qualitative NEGATIVE NEGATIVE Valproic Acid (Depakene) Level 46.4 L 50.0-100.0 UG/ML Urine Color YELLOW Urine Clarity CLEAR Urine pH 6 5-9 Urine Specific [place] 1.020 1.016-1.022 Urine Protein 1+ H NEGATIVE Urine Glucose (UA) NEGATIVE NEGATIVE Urine Ketones 1+ H NEGATIVE Urine Nitrite NEGATIVE NEGATIVE Urine Bilirubin NEGATIVE NEGATIVE Urine Urobilinogen NORMAL NORMAL MG/DL Urine Leukocyte Esterase 1+ H NEGATIVE Urine RBC (Auto) NEGATIVE NEGATIVE Urine RBC NONE /HPF Urine WBC 2-5 /HPF Urine Squamous Epithelial Cells 25-50 H /HPF Urine Crystals NONE /LPF Urine Bacteria FEW H /HPF Urine Casts NONE /LPF Urine Mucus MODERATE H /LPF Urine Culture Indicated NO Urine Opiates Screen NEGATIVE NEGATIVE Urine Oxycodone Screen NEGATIVE NEGATIVE Urine Methadone Screen NEGATIVE NEGATIVE Urine Propoxyphene Screen NEGATIVE NEGATIVE Urine Barbiturates Screen NEGATIVE NEGATIVE Ur Tricyclic Antidepressants Screen NEGATIVE NEGATIVE Urine Phencyclidine Screen NEGATIVE NEGATIVE Urine Amphetamines Screen NEGATIVE NEGATIVE Urine Methamphetamines Screen NEGATIVE NEGATIVE Urine Benzodiazepines Screen POSITIVE H NEGATIVE Urine Cocaine Screen NEGATIVE NEGATIVE Urine Cannabinoids Screen NEGATIVE NEGATIVE My Orders Orders - ANT MILLER MD Cbc With Automated Diff (10/23/18 08:16) Comprehensive Metabolic Panel (10/23/18 08:16) Drug Screen Stat (Urine) (10/23/18 08:16) Hcg,Qualitative Serum (10/23/18 08:16) Magnesium (10/23/18 08:16) Thyroid Stimulating Hormone (10/23/18 08:16) Ua Culture If Indicated (10/23/18 08:16) Valproic Acid (10/23/18 08:16) General/Regular (10/23/18 Breakfast) Vital Signs/I&O 10/23/18 08:02 Temp 96.6 Pulse 79 Resp 18 B/P (MAP) 101/63 (76) Pulse Ox 97 Blood Pressure Mean: 76 Progress Progress Note : Progress Note Seen and evaluated. Labs ordered. UA and UDS. We will get breakfast for the patient. She does not note seizure activity currently. 0930: No acute seizures. Tolerated breakfast well. Labs reviewed. Was positive for benzos but apparently was given dose on previous visit a few days ago. She states that she is not normally on that. I discussed the case with Dr. Donis. They will follow her up in clinic and call her for appointment. Discharged home with return precautions. Patient verbalize understanding instructions and agreement with plan. Departure Impression Primary Impression: Seizure-like activity Disposition: 01 HOME, SELF-CARE Condition: Improved Departure-Patient Inst. Decision time for Depature: 09:35 Referrals: NO,LOCAL PHYSICIAN (PCP/Family) Primary Care Physician Patient Instructions: Seizures, Adult (DC) Add. Discharge Instructions: All discharge instructions reviewed with patient and/or family. Voiced understanding. Follow up with [facility] this week for recheck and further evaluation. They should call you today for appointment if you have not heard from them by tomorrow morning he should call them for appointment. Return for worse pain, fever, vomiting, seizures, weakness or other concerns as needed. Make sure you' re taking her medications as prescribed. No driving or performing activities that increases risk to you or the public until cleared by your doctor. Copy Copies To 1: CHIDI DONIS MD, TIMOTHY D MD Oct 23, 2018 08:37
[2018-10-23 08:39] LABS: ALANINE AMINOTRANSFERASE 12 U/L (0-55); ALKALINE PHOSPHATASE 60 U/L (40-136); BILIRUBIN,TOTAL 0.5 MG/DL (0.1-1.0); BUN/CREATININE RATIO 14; CALCIUM 8.8 MG/DL (8.5-10.1); CARBON DIOXIDE 18 MMOL/L (21-32); CHLORIDE 111 MMOL/L (98-107); CREATININE SERUM 0.69 MG/DL (0.60-1.30); GFR ESTIMATED > 60; GLUCOSE 88 MG/DL (70-105); POTASSIUM 3.8 MMOL/L (3.6-5.0); SODIUM 139 MMOL/L (135-145); TOTAL PROTEIN 6.2 GM/DL (6.4-8.2)
--- NOTE | 2018-10-23 08:46 | NUR ---
FOOD TRAY GIVEN
--- NOTE | 2018-10-23 08:56 | NUR ---
AMB TO BATHROOM TO OBTAIN UA.
[2018-10-23 08:58] LABS: VALPROIC ACID 46.4 UG/ML (50.0-100.0)
[2018-10-23 09:02] LABS: BILIRUBIN,URINE NEGATIVE (NEGATIVE); CLARITY,URINE CLEAR; COLOR,URINE YELLOW; GLUCOSE, URINE (UA) NEGATIVE (NEGATIVE); KETONES,URINE 1+ (NEGATIVE); LEUKOCYTE ESTERASE ,URINE 1+ (NEGATIVE); NITRITE,URINE NEGATIVE (NEGATIVE); PH,URINE 6 (5-9); PROTEIN,URINE 1+ (NEGATIVE); UROBILINOGEN,URINE NORMAL (NORMAL)
[2018-10-23 09:10] LABS: BACTERIA,URINE FEW /HPF; SQUAMOUS EPITHELIAL CELL,UR 25-50 /HPF
[2018-10-23 09:13] LABS: AMPHETAMINE SCREEN, URINE NEGATIVE (NEGATIVE); BARBITURATE SCREEN URINE NEGATIVE (NEGATIVE); BENZODIAZEPINES SCREEN URINE POSITIVE (NEGATIVE); CANNABINOID SCREEN, URINE NEGATIVE (NEGATIVE); COCAINE SCREEN URINE NEGATIVE (NEGATIVE); METHAMPHETAMINE SCREEN URINE S NEGATIVE (NEGATIVE); OPIATE SCREEN URINE NEGATIVE (NEGATIVE); TRICYCLIC ANTIDEPRESSANTS SCRE NEGATIVE (NEGATIVE)
[2018-10-23 09:14] LABS: METHADONE STAT NEGATIVE (NEGATIVE); OXYCODONE STAT NEGATIVE (NEGATIVE); PROPOXYPHENE STAT NEGATIVE (NEGATIVE)
[2018-10-23 09:45] VITALS: BP 100/71
== END 2018-10-23 09:45 | disposition home or self-care (01) ==
LOC: ER 07:59 → EDUNIT# 07:59 → ER 09:45
DX: G40.909 Epilepsy, unspecified, not intractable, without status epilepticus (principal); F31.9 Bipolar disorder, unspecified; F17.210 Nicotine dependence, cigarettes, uncomplicated; Z90.49 Acquired absence of other specified parts of digestive tract
CPT/HCPCS: 36415; 80053; 80164; 80306; 81000; 83735; 84443; 84703; 85025